=== PATIENT | female | born 1980 | race Asian ===

== ENCOUNTER 2017-04-13 05:10 | Inpatient (IN) | payer OTHER ==
[~2017-04-13] VITALS: Ht 167.6 cm; Wt 63.8 kg
[~2017-04-13 05:10] MED LIST: ABIL1TAB5 PO; ABIL2TAB2 PO; ABIL400I IM; AMBI5TAB PO; BENZ1TA PO; CLON1TAB PO; DESYREL PO; DRIS50002 PO; FLOM5CAP PO; HALO05TA PO; HYDR25T PO; INVE156I IM; KLON1TAB PO; LIDO5TD TD; MAALSUS20 PO; MINI1CAP PO; MIRT15TA3 PO; MOM30SS PO; NICO2GUM62 PO; NICO4GUM31 PO; PANT40TA2 PO; PROZ20CA11 PO; QUET1TAB8 PO; QUET1TAB9 PO; REST15CA PO; RISP1SS IM; RISP4TAB33 PO; RISP4TAB35 PO; SERT-138 PO; SERT25TA PO; SERT50TA PO; TEMA22.5 PO; TEMA30CA PO; TOPA100T8 PO; TOPA50TA7 PO; TOPI1TAB31 PO; TOPI200T4 PO; TOPI25CA PO; TOPI25TA5 PO; TRAZ50TA4 PO; TYLE325T5 PO; ZOLO50TA PO
[2017-04-13] MEDS ORDERED: INVE9TAB PO ×2 (05:29→14:05)
[2017-04-13] MEDS ORDERED: SERT-155 PO (05:29)
[2017-04-13] MEDS ORDERED: TOPA100T8 PO (05:29)
[2017-04-13] MEDS ORDERED: BENZ1TA PO ×2 (05:31→14:05)
[2017-04-13 06:39] LABS: METHADONE URINE NEGATIVE (NEGATIVE)
[2017-04-13 06:42] LABS: MEAN CORPUSCULAR HEMOGLOBIN 30.7 pg (27.0-33.0); MEAN CORPUSCULAR HGB CONC 34.3 g/dl (32.0-36.5); MEAN CORPUSCULAR VOLUME 89.4 fl (80.0-96.0); RED CELL DISTRIBUTION WIDTH 13.4 % (11.5-14.5)
[2017-04-13 06:52] LABS: CONTROL LINE HCG INT CTR LINE PRESENT
[2017-04-13 07:06] LABS: ALBUMIN 4.2 GM/DL (3.2-5.2); ALBUMIN/GLOBULIN RATIO 1.05 (1.00-1.93); ALKALINE PHOSPHATASE 55 U/L (45-117); ALT/SGPT 20 U/L (12-78); ANION GAP 8 MEQ/L (8-16); AST/SGOT 16 U/L (15-37); BILIRUBIN,DIRECT < 0.1 MG/DL (0.0-0.2); BILIRUBIN,TOTAL 0.2 MG/DL (0.2-1.0); BLOOD UREA NITROGEN 5 MG/DL (7-18); CARBON DIOXIDE LEVEL 26 MEQ/L (21-32); CHLORIDE LEVEL 106 MEQ/L (98-107); CREATININE FOR GFR 0.79 MG/DL (0.55-1.02); GLOMERULAR FILTRATION RATE > 60.0 (>60); GLUCOSE, FASTING 90 MG/DL (70-105); POTASSIUM SERUM 4.2 MEQ/L (3.5-5.1); SODIUM LEVEL 140 MEQ/L (136-145); TOTAL PROTEIN 8.2 GM/DL (6.4-8.2)
[2017-04-13] MEDS: NICOTINE 21MG/24HR 1 EA TRANSDERMAL TD SCH ×2 (09:00→18:41)
[2017-04-13 12:27] VITALS: BP 107/57
[2017-04-13] MEDS ORDERED: TOPI1TAB31 PO (14:05)
[2017-04-13] MEDS ORDERED: HYDR25T PO (14:05)
[2017-04-13] MEDS ORDERED: MIRT30TA3 PO (14:05)
[2017-04-13] MEDS ORDERED: INVE3TAB PO (14:05)
[2017-04-13] MEDS ORDERED: DRIS50002 PO (14:05)
[2017-04-13] MEDS ORDERED: SERT50TA PO (14:05)
[2017-04-13] MEDS ORDERED: MOM 30ML SUSPENSION UDC PO PRN (14:15)
[2017-04-13] MEDS ORDERED: MAALOX 30 ML SUSP *UDC PO PRN (14:15)
[2017-04-13] MEDS ORDERED: ACETAMINOPHEN TAB 650MG DOSE (2X325MG) PO PRN (14:15)
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
[2017-04-13] MEDS ORDERED: hydrOXYzine 25 MG TAB PO PRN (14:30)
[2017-04-13] MEDS: BENZTROPINE 1 MG TAB PO SCH ×2 (15:24→21:20)
[2017-04-13 18:00] VITALS: BP 103/59
[2017-04-13] MEDS ORDERED: SERTRALINE HCL 50 MG TAB PO SCH (21:00)
[2017-04-13] MEDS: MIRTAZAPINE 15 MG TAB PO SCH (21:20)
[2017-04-13] MEDS: SERTRALINE HCL 25 MG TABLET PO SCH (21:21)
[2017-04-13] MEDS: PALIPERIDONE 3 MG ER TAB (INVEGA) PO SCH (21:21)
[2017-04-14 06:05] VITALS: BP 91/54
[2017-04-14] MEDS: BENZTROPINE 1 MG TAB PO SCH ×2 (10:00→20:51)
[2017-04-14] MEDS: PALIPERIDONE 3 MG ER TAB (INVEGA) PO SCH ×2 (10:00→20:51)
[2017-04-14] MEDS: NICOTINE 21MG/24HR 1 EA TRANSDERMAL TD SCH (10:00)
[2017-04-14 18:08] VITALS: BP 98/58
[2017-04-14] MEDS: MIRTAZAPINE 15 MG TAB PO SCH (20:50)
[2017-04-14] MEDS: SERTRALINE HCL 25 MG TABLET PO SCH (20:51)
--- NOTE | 2017-04-15 03:05 | IPN ---
DATE OF SERVICE: 04/14/2017 The patient today states "I'm feeling better because I got some sleep." She continues to hear voices though, but she says they are not telling her to kill herself today. MENTAL STATUS EXAMINATION: She is alert and oriented times three. Eye contact is fair. Psychomotor activity is normal. She is verbally spontaneous. There is no formal thought disorder noted. Affect full range and appropriate. She is experiencing command auditory hallucinations to kill herself. She is denying suicidal or homicidal ideations. Concentration is fair. Memory intact. Insight and judgment poor. DIAGNOSIS: Schizoaffective disorder, bipolar type. TREATMENT PLAN: At this point, the patient will continue to be monitored for continued psychotic symptoms and hopefully resolution of these psychotic symptoms and we will titrate medications as indicated.
[2017-04-15 07:20] VITALS: BP 131/76
[2017-04-15] MEDS: BENZTROPINE 1 MG TAB PO SCH ×2 (08:54→20:42)
[2017-04-15] MEDS: PALIPERIDONE 3 MG ER TAB (INVEGA) PO SCH ×2 (08:54→20:42)
[2017-04-15] MEDS: NICOTINE 21MG/24HR 1 EA TRANSDERMAL TD SCH (08:54)
[2017-04-15 18:00] VITALS: BP 105/63
[2017-04-15] MEDS: SERTRALINE HCL 25 MG TABLET PO SCH (20:42)
[2017-04-15] MEDS: MIRTAZAPINE 15 MG TAB PO SCH (20:42)
--- NOTE | 2017-04-16 03:03 | HPE ---
DATE OF ADMISSION: 04/13/2017 HISTORY OF PRESENT ILLNESS: Please refer to psychiatric history and evaluation for further details on this admission. This examination and history is intended for medical issues, which may need treatment, followup or consult on this 36-year-old female. ALLERGIES: SHELLFISH allergy. NONSTEROIDAL ANTIINFLAMMATORY DRUGS (NSAIDS), anaphylaxis; PENICILLIN, rash; NOVOCAIN, lip swelling. SOCIAL HISTORY: She lives with her aunt. She has no children. She does not drink alcohol. She smokes one pack of cigarettes per day. Marijuana she states maybe once in the past year. FAMILY HISTORY: Mother secondary to melanoma in her 60s. LABORATORY STUDIES: WBC 9.0, hemoglobin 15.1, hematocrit 44.0, platelets 465. Electrolytes normal. BUN is 5, creatinine 0.79. TSH 1.71. Toxicology screen was negative. HOME MEDICATIONS: - benztropine methylate 1 mg by mouth twice a day - hydroxyzine 25 mg by mouth three times a day as needed for anxiety - mirtazapine 30 mg by mouth nightly - Invega 3 mg by mouth daily and 9 mg by mouth daily - sertraline 75 mg by mouth daily - Topamax 100 mg by mouth twice a day - vitamin D 50,000 units weekly PAST MEDICAL HISTORY: 1. Posttraumatic stress disorder (PTSD). 2. Schizoaffective disorder. 3. Bipolar disorder. 4. Migraine headaches. 5. Seizure disorder, she follows with Dr. Ervin, neurologist. PAST SURGICAL HISTORY: Two abortions. REVIEW OF SYSTEMS: 10-system review was done, was unremarkable. She had no complaints. OBJECTIVE: Vital signs stable. 36-year-old female in no acute distress. Height 66 inches, weight 60.2 kg, body mass index (BMI) 21.4. Blood pressure 103/59, pulse 70, respirations 16, temperature 99. The patient is alert and oriented times three. Pupils equal and react to light. Extraocular muscles intact. Cornea and sclerae clear. Conjunctivae were normal. No facial asymmetry. Pharynx, tongue and gums pink and moist. Tongue is midline. Neck is supple without lymphadenopathy. No thyromegaly, no goiter. Chest clear to auscultation without wheeze or retraction. Heart is regular. Abdomen is benign. Bowel sounds positive. Genitourinary/rectal: Not done. Extremities show equal strength, full range of motion. No cyanosis, clubbing or edema. Peripheral pulses equal and palpable bilaterally. Skin is warm and dry. Cranial nerves III-XII grossly intact. EKG 07/22/2016 shows sinus rhythm with NSSTW. IMPRESSION/PLAN: 1. Psychiatric plan per psychiatry. EKG on file. 2. Seizure disorder. Continue Topamax as ordered. Continued outpatient followup with Dr. Ervin. 3. Nicotine dependence. Patch available. 4. Gastroesophageal reflux disease (GERD). Continue Protonix. No acute medical issues.
--- NOTE | 2017-04-16 04:51 | IPN ---
DATE OF SERVICE: 04/15/2017 The patient today states "I'm very groggy." She says "the voices are going away." She is not really receptive to answering questions today. MENTAL STATUS EXAMINATION: It was very difficult to evaluate her today. She did deny suicidal ideation. Eye contact poor. Psychomotor activity is decreased. There was no formal thought disorder. Mood is depressed. Affect restricted. She continues to have hallucinations. Insight and judgment poor. DIAGNOSIS: Schizoaffective disorder, bipolar type with psychotic disorder. TREATMENT PLAN: At this point, the patient remains delusional or actually having hallucinations. We will continue to titrate her medications as indicated and to continue to monitor for any resolution of suicidal ideation.
[2017-04-16 06:38] VITALS: BP 90/54
[2017-04-16] MEDS: NICOTINE 21MG/24HR 1 EA TRANSDERMAL TD SCH (09:11)
[2017-04-16] MEDS: BENZTROPINE 1 MG TAB PO SCH ×2 (09:11→18:24)
[2017-04-16] MEDS: PALIPERIDONE 3 MG ER TAB (INVEGA) PO SCH (09:11)
[2017-04-16] MEDS ORDERED: PALIPERIDONE PALMITATE 234 MG/1.5 ML INJ (INVEGA SUSTENNA)(J2426) IM ONE (12:00)
--- NOTE | 2017-04-16 12:22 | MHIPNPDOC ---
[facility] Progress Note Progress Note DATE OF SERVICE: 04/16/17 HISTORY: day 4 of admission. Pt hospitalized due to exacerbation of symptoms- psychosis, SI. VITAL SIGNS: See below. NEW TEST RESULTS: pending labs & EKG CURRENT MEDICATIONS: See below. MENTAL STATUS EXAMINATION: Patient is a 36 -year old female, who is dressed in hospital attire, long dark hair and glasses, slender, good eye contact, cooperative. Speech: Is spontaneous Language skills are grossly intact Thought processes including: goal directed Thought content: bizarre Abstract reasoning, and computation: concrete. Description of associations: loose. Description of abnormal or psychotic thoughts: "It feels like the voices are coming through a speaker". She refers to hearing funny word associations by the voices in her mind. It causes her to smile. Denies SI and HI. Judgment: limited Insight: fair. Orientation: oriented to person, place, time and situation. Recent and remote memory: intact Attention span and concentration: adequate Fund of knowledge: full Mood: depressed. Affect: tired DIAGNOSES: 1. Schizoaffective, bipolar type, current episode depressed with psychotic features. 2. Nicotine dependence 3. polysubstance abuse, in remission. ASSESSMENT:Trever is reporting a.m. drowsiness. She is reporting an improvement in the voices as far as intensity and frequency go. She hears the voices still and laughs at them of what they say to her. Sometimes they give her commands to harm herself. She denies any suicidal intent or plan. She wants to live. She has been hanging out in her room by herself at home. 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 Pt reports intrusive thoughts of PTSD frequently. She is aware that she only seeks out the hospital in the summer. She does admit that father comes to visit this time of year to see his 's grave, (pts mother). Pt is taking medication as ordered. Pt is agreeable to a trial of the Invega sustenna. She would like to eventually try the Invega Trinza. Pt indicates she developed scar tissue on the injections in the past. Important for her to rotate sites. MANAGEMENT PLAN: Order Invega sustenna 234 mg IM. On day 4 pt to receive Invega sustenna 156 mg IM. Pt is to receive 156mg after discharge on 7.6.17. It is doubtful she will need to be the hospital that long so we will need to notify her provider of the injections. PO Invega will be stopped. TIME SPENT: 30 minutes. Vital Signs Vital Signs Date Time Temp Pulse Resp B/P (MAP) Pulse Ox O2 Delivery O2 Flow Rate FiO2 04/16/17 06:38 97.8 57 16 90/54 (66) 04/14/17 06:05 Room Air 04/13/17 12:27 96 Current Medications Current Medications Acetaminophen (Tylenol Tab) 650 mg Q6HP PRN PO HEADACHE or DISCOMFORT; Start at 14:15; Stop 05/13/17 at 14:14 Al Hydrox/Mg Hydrox/Simethicone (Mylanta) 30 ml Q4HP PRN PO HEARTBURN/ INDIGESTION; Start 04/13/17 at 14:15; Stop 05/13/17 at 14:14 Benztropine Mesylate (Cogentin) 1 mg BID PO Last administered on 04/16/17 09:11 ; Start 04/13/17 at 09:00; Stop 05/13/17 at 08:59 Home Med (Med Rec Complete!) ASDIRECTED XX ; Start 04/13/17 at 14:15; Stop at 14:15; Status DC Hydroxyzine HCl (Atarax) 25 mg Q6HP PRN PO ANXIETY; Start 04/13/17 at 14:30; Stop 05/13/17 at 14:29 Magnesium Hydroxide (Milk Of Magnesia) 30 ml DAILYPRN PRN PO CONSTIPATION; Start 04/13/17 at 14:15; Stop 05/13/17 at 14:14 Mirtazapine (Remeron) 15 mg QHS PO Last administered on 04/15/17 20:42; Start 04/13/17 at 21:00; Stop 05/13/17 at 20:59 Nicotine (Nicoderm Cq 21mg) 1 patch DAILY TD Last administered on 04/16/17 09: 11; Start 04/13/17 at 09:00; Stop 05/13/17 at 08:59 Paliperidone (Invega) 3 mg QAM PO Last administered on 04/16/17 09:11; Start at 09:00; Stop 04/16/17 at 11:57; Status DC Paliperidone (Invega) 9 mg QHS PO Last administered on 04/15/17 20:42; Start at 21:00; Stop 05/13/17 at 20:59 Sertraline HCl (Zoloft) 50 mg QHS PO ; Start 04/13/17 at 21:00; Stop 04/13/17 at 21:00; Status DC Sertraline HCl (Zoloft) 75 mg QHS PO Last administered on 04/15/17 20:42; Start 04/13/17 at 21:00; Stop 05/13/17 at 20:59 Allergies Coded Allergies: NSAIDs (Verified Allergy, Severe, 04/13/17) PT REPORTS ANAPHYLACTIC RESPONSE. Naproxen (Verified Allergy, Severe, pt states- anaphylaxis , 04/13/17) Penicillins (Verified Allergy, Severe, 04/13/17) PT REPORTS RASH. Procaine (Verified Allergy, Severe, LIPS SWELL, 04/13/17) Shellfish Allergy (Verified Allergy, Unknown, 04/13/17) Milagros Roman Apr 16, 2017 12:22
[2017-04-16 18:00] VITALS: BP 128/76
[2017-04-16] MEDS: MIRTAZAPINE 15 MG TAB PO SCH (18:24)
[2017-04-16] MEDS: SERTRALINE HCL 25 MG TABLET PO SCH (18:26)
--- NOTE | 2017-04-16 21:56 | ECGEPIP ---
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
[2017-04-17 06:41] VITALS: BP 114/68
[2017-04-17] MEDS: BENZTROPINE 1 MG TAB PO SCH ×3 (08:46→22:46)
[2017-04-17] MEDS: NICOTINE 21MG/24HR 1 EA TRANSDERMAL TD SCH (08:46)
--- NOTE | 2017-04-17 15:39 | MHIPNPDOC ---
[facility] Progress Note Progress Note DATE OF SERVICE: 04/17/17 HISTORY: day 5 of admission for auditory hallucinations and fear of someone outside her home. VITAL SIGNS: See below. NEW TEST RESULTS: na CURRENT MEDICATIONS: See below. MENTAL STATUS EXAMINATION: Patient is a 36-year old female, who is lying in bed, says she does not want to attend groups as she feels too uncomfortable. Speech: Is spontaneous Language skills are intact Thought processes including: linear Thought content: believes at times the TV or radio is synchronized with her thoughts. Abstract reasoning, and computation: fair. Description of associations: good. Description of abnormal or psychotic thoughts: as above. pt denies SI and HI.Pt is not experiencing auditory hallucinations at this time. Judgment: limited Insight: poor. Orientation: oriented in all spheres. Recent and remote memory: intact Attention span and concentration: poor Fund of knowledge: full Mood: depressed. Affect: congruent. DIAGNOSES: 1. Schizoaffective, bipolar type, current episode depressed with psychotic features. 2. Nicotine dependence 3. polysubstance abuse, in remission. ASSESSMENT:Pt is lying in bed all day and should be encouraged to attend programing so we can assess her concentration and attention. She remains in her room all day when at home. Pt is sleeping and says she needs to catch up on sleep but that she had done so over the weekend. Pt is eating and sleeping. Pt is requesting discharge. MANAGEMENT PLAN: Pt needs to show more motivation in order to be discharged. She is scheduled on April 20 for step 2 of Invega Trinza treatment. She will receive Invega Sustenna 156 mg IM on that day. If possible, she can receive injection 3 at [facility] on May 21 of sustenna 156 mg. In June she could start the Trinza injection. We will contact the insurance to see if it will be covered. TIME SPENT: 15 minutes. Vital Signs Vital Signs Date Time Temp Pulse Resp B/P (MAP) Pulse Ox O2 Delivery O2 Flow Rate FiO2 04/17/17 06:41 98.2 72 16 114/68 (83) 04/14/17 06:05 Room Air 04/13/17 12:27 96 Current Medications Current Medications Acetaminophen (Tylenol Tab) 650 mg Q6HP PRN PO HEADACHE or DISCOMFORT Last administered on 04/17/17t 09:19; Start 04/13/17 at 14:15; Stop 05/13/17 at 14:14 Al Hydrox/Mg Hydrox/Simethicone (Mylanta) 30 ml Q4HP PRN PO HEARTBURN/ INDIGESTION; Start 04/13/17 at 14:15; Stop 05/13/17 at 14:14 Benztropine Mesylate (Cogentin) 1 mg BID PO Last administered on 04/17/17 08:46 ; Start 04/13/17 at 09:00; Stop 05/13/17 at 08:59 Home Med (Med Rec Complete!) ASDIRECTED XX ; Start 04/13/17 at 14:15; Stop at 14:15; Status DC Hydroxyzine HCl (Atarax) 25 mg Q6HP PRN PO ANXIETY; Start 04/13/17 at 14:30; Stop 05/13/17 at 14:29 Magnesium Hydroxide (Milk Of Magnesia) 30 ml DAILYPRN PRN PO CONSTIPATION; Start 04/13/17 at 14:15; Stop 05/13/17 at 14:14 Mirtazapine (Remeron) 15 mg QHS PO Last administered on 04/16/17 18:24; Start 04/13/17 at 21:00; Stop 05/13/17 at 20:59 Nicotine (Nicoderm Cq 21mg) 1 patch DAILY TD Last administered on 04/17/17 08: 46; Start 04/13/17 at 09:00; Stop 05/13/17 at 08:59 Paliperidone (Invega) 3 mg QAM PO Last administered on 04/16/17 09:11; Start at 09:00; Stop 04/16/17 at 11:57; Status DC Paliperidone (Invega) 9 mg QHS PO Last administered on 04/15/17 20:42; Start at 21:00; Stop 04/16/17 at 13:06; Status DC Sertraline HCl (Zoloft) 50 mg QHS PO ; Start 04/13/17 at 21:00; Stop 04/13/17 at 21:00; Status DC Sertraline HCl (Zoloft) 75 mg QHS PO Last administered on 04/16/17 18:26; Start 04/13/17 at 21:00; Stop 05/13/17 at 20:59 Allergies Coded Allergies: NSAIDs (Verified Allergy, Severe, 04/13/17) PT REPORTS ANAPHYLACTIC RESPONSE. Naproxen (Verified Allergy, Severe, pt states- anaphylaxis , 04/13/17) Penicillins (Verified Allergy, Severe, 04/13/17) PT REPORTS RASH. Procaine (Verified Allergy, Severe, LIPS SWELL, 04/13/17) Shellfish Allergy (Verified Allergy, Unknown, 04/13/17) Milagros Roman Apr 17, 2017 15:39
[2017-04-17 18:00] VITALS: BP 131/72
[2017-04-17] MEDS: SERTRALINE HCL 25 MG TABLET PO SCH ×2 (21:00→22:46)
[2017-04-17] MEDS: MIRTAZAPINE 15 MG TAB PO SCH ×2 (21:00→22:46)
[2017-04-18 05:59] VITALS: BP 100/55
[2017-04-18] MEDS: BENZTROPINE 1 MG TAB PO SCH ×2 (09:35→21:37)
[2017-04-18] MEDS: NICOTINE 21MG/24HR 1 EA TRANSDERMAL TD SCH (09:36)
--- NOTE | 2017-04-18 11:54 | MHIPNPDOC ---
[facility] Progress Note Progress Note DATE OF SERVICE: 04/18/17 HISTORY: day6 of admission, h/o auditory hallucinations and paranoia VITAL SIGNS: See below. NEW TEST RESULTS: na CURRENT MEDICATIONS: See below. MENTAL STATUS EXAMINATION: Patient is a 36-year old female, who is lying in bed, shows no motivation, pleasant and cooperative. Speech: Is spontaneous Language skills are intact Thought processes including: linear Thought content: paranoid delusions Abstract reasoning, and computation: concrete Description of associations: good. Description of abnormal or psychotic thoughts: feels outside stimuli coordinate with her inner thoughts, denies SI and HI, admits to ongoing auditory hallucinations. Judgment: limited Insight: limited. Orientation: oriented in all spheres. Recent and remote memory: intact Attention span and concentration: adequate Fund of knowledge: full Mood: depressed. Affect: congruent DIAGNOSES: 1. schizoaffective disorder, bipolar type, with psychosis and depression, recurrent, severe. 2. poly substance abuse in remission 3. nicotine dependent. ASSESSMENT:Pt was encouraged to get out of bed and out of the room and to start attending programming so we can assess her attention, concentration and ability to interact appropriately with others. She got up and agreed to do as requested. After attending one group she requested discharge today, stating, "I have been in bed for 3 years". Pt advised that change is slow and this is th [facility] efor her to try doing things differently. Pt asked to envision how she would like he rlife to be 6 months from now. Encouraged to think about the changes she would like ot make in her life. MANAGEMENT PLAN: Continue meds, encourage pt to remain out of room and participation in unit milieu.She is due for a second Invega Sustenna injection on Sunday. We will have a meeting that day with her major case detective and if all goes well she can be discharged that afternoon. TIME SPENT: 15 minutes. Vital Signs Vital Signs Date Time Temp Pulse Resp B/P (MAP) Pulse Ox O2 Delivery O2 Flow Rate FiO2 04/18/17 05:59 98.5 69 20 100/55 (70) 04/14/17 06:05 Room Air 04/13/17 12:27 96 Current Medications Current Medications Acetaminophen (Tylenol Tab) 650 mg Q6HP PRN PO HEADACHE or DISCOMFORT Last administered on 04/17/17t 09:19; Start 04/13/17 at 14:15; Stop 05/13/17 at 14:14 Al Hydrox/Mg Hydrox/Simethicone (Mylanta) 30 ml Q4HP PRN PO HEARTBURN/ INDIGESTION; Start 04/13/17 at 14:15; Stop 05/13/17 at 14:14 Benztropine Mesylate (Cogentin) 1 mg BID PO Last administered on 04/18/17 09:35 ; Start 04/13/17 at 09:00; Stop 05/13/17 at 08:59 Home Med (Med Rec Complete!) ASDIRECTED XX ; Start 04/13/17 at 14:15; Stop at 14:15; Status DC Hydroxyzine HCl (Atarax) 25 mg Q6HP PRN PO ANXIETY; Start 04/13/17 at 14:30; Stop 05/13/17 at 14:29 Magnesium Hydroxide (Milk Of Magnesia) 30 ml DAILYPRN PRN PO CONSTIPATION; Start 04/13/17 at 14:15; Stop 05/13/17 at 14:14 Mirtazapine (Remeron) 15 mg QHS PO Last administered on 04/17/17 22:46; Start 04/13/17 at 21:00; Stop 05/13/17 at 20:59 Nicotine (Nicoderm Cq 21mg) 1 patch DAILY TD Last administered on 04/18/17 09: 36; Start 04/13/17 at 09:00; Stop 05/13/17 at 08:59 Paliperidone (Invega) 3 mg QAM PO Last administered on 04/16/17 09:11; Start at 09:00; Stop 04/16/17 at 11:57; Status DC Paliperidone (Invega) 9 mg QHS PO Last administered on 04/15/17 20:42; Start at 21:00; Stop 04/16/17 at 13:06; Status DC Sertraline HCl (Zoloft) 50 mg QHS PO ; Start 04/13/17 at 21:00; Stop 04/13/17 at 21:00; Status DC Sertraline HCl (Zoloft) 75 mg QHS PO Last administered on 04/17/17 22:46; Start 04/13/17 at 21:00; Stop 05/13/17 at 20:59 Allergies Coded Allergies: NSAIDs (Verified Allergy, Severe, 04/13/17) PT REPORTS ANAPHYLACTIC RESPONSE. Naproxen (Verified Allergy, Severe, pt states- anaphylaxis , 04/13/17) Penicillins (Verified Allergy, Severe, 04/13/17) PT REPORTS RASH. Procaine (Verified Allergy, Severe, LIPS SWELL, 04/13/17) Shellfish Allergy (Verified Allergy, Unknown, 04/13/17) Milagros Roman Apr 18, 2017 11:54
[2017-04-18 18:00] VITALS: BP 107/74
[2017-04-18] MEDS: MIRTAZAPINE 15 MG TAB PO SCH (21:37)
[2017-04-18] MEDS: SERTRALINE HCL 25 MG TABLET PO SCH (21:37)
[2017-04-19 06:28] VITALS: BP 109/72
[2017-04-19 07:51] LABS: BASO # 0.1 K/mm3 (0.0-0.2); BASO % 0.6 % (0.0-1.0); EOS # 0.8 K/mm3 (0.0-0.50); EOS % 8.9 % (0.0-3.0); LARGE UNSTAINED CELL # 0.2 K/mm3 (0.0-0.4); LARGE UNSTAINED CELL % 1.8 % (0.0-4.0); LYMPH # 2.5 K/mm3 (1.5-4.5); LYMPH % 25.4 % (24.0-44.0); MEAN CORPUSCULAR HGB CONC 33.4 g/dl (32.0-36.5); MEAN CORPUSCULAR VOLUME 89.6 fl (80.0-96.0); MONO # 0.5 K/mm3 (0.0-0.8); MONO % 5.4 % (0.0-5.0); NEUTROPHILS # 5.3 K/mm3 (1.8-7.7); NEUTROPHILS % 57.8 % (36.0-66.0); PLATELET COUNT, AUTOMATED 371 k/mm3 (150-450); RED CELL DISTRIBUTION WIDTH 13.1 % (11.5-14.5); WHITE BLOOD COUNT 9.1 K/mm3 (4.0-10.0)
[2017-04-19] MEDS: BENZTROPINE 1 MG TAB PO SCH ×2 (08:26→20:47)
[2017-04-19] MEDS: NICOTINE 21MG/24HR 1 EA TRANSDERMAL TD SCH (08:27)
--- NOTE | 2017-04-19 13:42 | MHIPNPDOC ---
[facility] Progress Note Progress Note DATE OF SERVICE: 04/19/17 HISTORY: day 7 of admission for decompensation, pt off medications and psychotic. VITAL SIGNS: See below. NEW TEST RESULTS: na CURRENT MEDICATIONS: See below. MENTAL STATUS EXAMINATION: Patient is a 36-year old female, who is of descent, lays in bed most of the day and evening, shows little motivation to change her circumstances and makes good eye contact. Speech: Is clear Language skills are intact Thought processes including: linear in brief conversation Thought content: appropriate. Abstract reasoning, and computation: concrete. Description of associations: good. Description of abnormal or psychotic thoughts: pt reports a reduction in Auditory disturbance since resuming Invega, denies SI and HI. Judgment: limited Insight: very limited. Orientation: oriented in all spheres. Recent and remote memory: recall 2/3 after 5 min Attention span and concentration: poor, only lays in bed. States that is what she does all day. Fund of knowledge: impaired Mood: euthymic. Affect: flat, blunted, constricted. DIAGNOSES: 1. Schizoaffective, bipolar type, current episode depressed with psychotic features. 2. Nicotine dependence 3. polysubstance abuse, in remission. ASSESSMENT:pt sitting up in bed, fully clothed, wearing eye glasses. Insisting on discharge tomorrow even though she remains seclusive to room. Once again encouraged pt to be more engaged in the milieu. She says she is too uncomfortable and it is not her way to be sociable. Pt denies psychotic symptoms. Pt denies manic symptoms. Pt wants to leave and return to her Aunt's home. Pt does not offer any input when asked about future plans for education or working. MANAGEMENT PLAN: meeting tomorrow with CM, followed by discharge. Appeal will be presented to her insurance company who is refusing to cover her Invega Sustenna as "she is a new pt to us and has been compliant as far as we can tell ". Some elevation of WBC;s-monophils and eosinophils. VSS. TIME SPENT: 15minutes. Vital Signs Vital Signs Date Time Temp Pulse Resp B/P (MAP) Pulse Ox O2 Delivery O2 Flow Rate FiO2 04/19/17 06:28 97.7 61 16 109/72 (84) 04/14/17 06:05 Room Air 04/13/17 12:27 96 Laboratory Data 24H Labs Laboratory Tests 2 04/19/17 06:54: White Blood Count 9.1, Red Blood Count 4.90, Hemoglobin 14.7, Hematocrit 43.9, Mean Corpuscular Volume 89.6, Mean Corpuscular Hemoglobin 30.0, Mean Corpuscular Hemoglobin Concent 33.4, Red Cell Distribution Width 13.1, Platelet Count 371, Neutrophils (%) (Auto) 57.8, Lymphocytes (%) (Auto) 25.4, Monocytes ( %) (Auto) 5.4H, Eosinophils (%) (Auto) 8.9H, Basophils (%) (Auto) 0.6, Neutrophils # (Auto) 5.3, Lymphocytes # (Auto) 2.5, Monocytes # (Auto) 0.5, Eosinophils # (Auto) 0.8H, Basophils # (Auto) 0.1, Large Unclassified Cells % 1.8, Large Unclassified Cells # 0.2 CBC/BMP Laboratory Tests 04/19/17 06:54 Red Blood Count 4.90, Mean Corpuscular Volume 89.6, Mean Corpuscular Hemoglobin 30.0, Mean Corpuscular Hemoglobin Concent 33.4, Red Cell Distribution Width 13.1 , Neutrophils (%) (Auto) 57.8, Lymphocytes (%) (Auto) 25.4, Monocytes (%) (Auto ) 5.4 H, Eosinophils (%) (Auto) 8.9 H, Basophils (%) (Auto) 0.6, Neutrophils # ( Auto) 5.3, Lymphocytes # (Auto) 2.5, Monocytes # (Auto) 0.5, Eosinophils # (Auto ) 0.8 H, Basophils # (Auto) 0.1 Current Medications Current Medications Acetaminophen (Tylenol Tab) 650 mg Q6HP PRN PO HEADACHE or DISCOMFORT Last administered on 04/17/17 09:19; Start 04/13/17 at 14:15; Stop 05/13/17 at 14:14 Al Hydrox/Mg Hydrox/Simethicone (Mylanta) 30 ml Q4HP PRN PO HEARTBURN/ INDIGESTION; Start 04/13/17 at 14:15; Stop 05/13/17 at 14:14 Benztropine Mesylate (Cogentin) 1 mg BID PO Last administered on 04/19/17 08:26 ; Start 04/13/17 at 09:00; Stop 05/13/17 at 08:59 Home Med (Med Rec Complete!) ASDIRECTED XX ; Start 04/13/17 at 14:15; Stop at 14:15; Status DC Hydroxyzine HCl (Atarax) 25 mg Q6HP PRN PO ANXIETY; Start 04/13/17 at 14:30; Stop 05/13/17 at 14:29 Magnesium Hydroxide (Milk Of Magnesia) 30 ml DAILYPRN PRN PO CONSTIPATION; Start 04/13/17 at 14:15; Stop 05/13/17 at 14:14 Mirtazapine (Remeron) 15 mg QHS PO Last administered on 04/18/17 21:37; Start 04/13/17 at 21:00; Stop 05/13/17 at 20:59 Nicotine (Nicoderm Cq 21mg) 1 patch DAILY TD Last administered on 04/19/17 08: 27; Start 04/13/17 at 09:00; Stop 05/13/17 at 08:59 Paliperidone (Invega) 3 mg QAM PO Last administered on 04/16/17 09:11; Start at 09:00; Stop 04/16/17 at 11:57; Status DC Paliperidone (Invega) 9 mg QHS PO Last administered on 04/15/17 20:42; Start at 21:00; Stop 04/16/17 at 13:06; Status DC Sertraline HCl (Zoloft) 50 mg QHS PO ; Start 04/13/17 at 21:00; Stop 04/13/17 at 21:00; Status DC Sertraline HCl (Zoloft) 75 mg QHS PO Last administered on 04/18/17 21:37; Start 04/13/17 at 21:00; Stop 05/13/17 at 20:59 Allergies Coded Allergies: NSAIDs (Verified Allergy, Severe, 04/13/17) PT REPORTS ANAPHYLACTIC RESPONSE. Naproxen (Verified Allergy, Severe, pt states- anaphylaxis , 04/13/17) Penicillins (Verified Allergy, Severe, 04/13/17) PT REPORTS RASH. Procaine (Verified Allergy, Severe, LIPS SWELL, 04/13/17) Shellfish Allergy (Verified Allergy, Unknown, 04/13/17) Milagros Roman Apr 19, 2017 13:42
[2017-04-19 18:14] VITALS: BP 100/64
[2017-04-19] MEDS: SERTRALINE HCL 25 MG TABLET PO SCH (20:47)
[2017-04-19] MEDS: MIRTAZAPINE 15 MG TAB PO SCH (20:47)
[2017-04-20 07:10] VITALS: BP 98/55
[2017-04-20] MEDS ORDERED: INVE156I IM (08:33)
[2017-04-20] MEDS: BENZTROPINE 1 MG TAB PO SCH (09:17)
[2017-04-20] MEDS: NICOTINE 21MG/24HR 1 EA TRANSDERMAL TD SCH (09:17)
[2017-04-20] MEDS ORDERED: PALIPERIDONE PALMITATE 156 MG/1ML INJ(INVEGA SUSTENNA)(J2426) IM ONE (10:00)
--- NOTE | 2017-04-20 14:41 | MHDSPDOC ---
[facility] Discharge Summary Discharge Summary DATE OF ADMISSION: Apr 13, 2017 at 11:04 DATE OF DISCHARGE: Apr 20, 2017 at 14:05 DISCHARGE DIAGNOSES: 1. schizoaffective disorder, bipolar type 2. Nicotine dependence 3. polysubstance abuse, in remission. REASON FOR ADMISSION:exacerbation of paranoia, hallucinations, non-compliance with outpatient treatment. CONSULTANTS INVOLVED: NA TREATMENT AND PROGRESS ON THE UNIT : Pt is a very bright and intelligent female of [place] descent. She has not well in the oupatient setting gor the past 3 years. She erports spending all day in bed and rarely leaving her home. On the unit she preferred to remain in bed or sitting in bed in her room despite requests to join group activities. She does not find out groups to her liking and often remained in bed. She seems to have very poor or low motivation. Desire to change this is unclear at the time of discharge. She is to continue/ resume Case management services. Her po Invega was changed to IM sustenna. HOSPITAL COURSE:Pt kept to herself and did not interact with any of her peers. She had little interaction with staff. She feels comfortable here and stayed in bed much of the time. We did ask her everday to get up and to to groups. She would but then she would get angry and ask for discharge. Pt started reporting a decrease in auditory disturbance shortly after Invega started and these became less and less to non-existent by the time she was discharged. Mastic Man attempted to engage pt is thinking about how she sees her life in 6 months or a year. Encouraged to make small plans and work on things a little at a time. Pt accepted Invega Sustenna which had been on previously when it was explained she could then transition to the Trinza injection which is only needed 4 x a year. Mastic Man left a message with [facility]'s outpatient provider, Edda Olya, to inform her that Trinza won't be due until June and she will need to order it. Mastic Man has ordered the Sustenna and appeal remains in pending status with insurance company. DISCHARGE ASSESSMENT: Met with pt and Milagros Thompson and NANCY land use planner prior to discharge. All pt concerns and question were answered or addressed. pt as assessed for EPS and akathesia which she denied prior to departure. Pt states she had plans to get her car operational, she wants to get her contacts and pursue her art interest. she may consider [facility] housing in the future since she can have her dogs go with her. Pt agustín tirado throughout admission to ask questions about medications. All questions answered. MENTAL STATUS EXAMINATION ON DISCHARGE: Patient is a 36-year old female, who is wearing glasses, dressed in street clothes, thin and pleasant. Speech is spontaneous Language skills are good Thought processes including: slightly delayed Thought content: appropriate Abstract reasoning, and computation: good Description of associations: good Description of abnormal or psychotic thoughts: paranoid delusions of people outside her house, no SI or HI. Judgment: fair Insight: fair Orientation to person, place, time and situation. Recent and remote memory: appears intact Attention span and concentration: good at times. Fund of knowledge: limited Mood: euthymic Affect: constricted, blunted MEDICATIONS ON DISCHARGE: -Invega sustenna for injection in May, for mood/psychosis -atarax for anxiety mirtazapine for sleep sertraline for depression cogentin for eps PLAN/FOLLOWUP ARRANGEMENTS: [facility] and [facility]. The amount of time spent in the coordination of care for this patient was approximately 30 minutes. Vital Signs/I&Os Vital Signs Date Time Temp Pulse Resp B/P (MAP) Pulse Ox O2 Delivery O2 Flow Rate FiO2 04/20/17 07:10 97.5 63 18 98/55 (69) 04/14/17 06:05 Room Air Medications Scheduled Benztropine Mesylate (Benztropine Mesylate) 1 Mg Tab, 1 MG PO BID for . , ( Reported) Mirtazapine (Mirtazapine) 30 Mg Tab, 30 MG PO QHS for . , (Reported) Paliperidone Palmitate (Invega Sustenna) 156 Mg/Ml Inj, 156 MG IM ONCE for MOOD for 30 Days, #1 Sertraline Hcl (Sertraline HCl) 50 Mg Tab, 75 MG PO DAILY for . , (Reported) Topiramate (Topiramate) 100 Mg Tab, 100 MG PO BID for . , (Reported) Vitamin D (Drisdol) 50,000 Unit Cap, 50,000 UNIT PO QWEEK for SUPPLEMENT, ( Reported) Scheduled PRN Hydroxyzine HCl (Hydroxyzine HCl) 25 Mg Tab, 25 MG PO TID PRN for ANXIETY, ( Reported) Allergies Coded Allergies: NSAIDs (Verified Allergy, Severe, 04/13/17) PT REPORTS ANAPHYLACTIC RESPONSE. Naproxen (Verified Allergy, Severe, pt states- anaphylaxis , 04/13/17) Penicillins (Verified Allergy, Severe, 04/13/17) PT REPORTS RASH. Procaine (Verified Allergy, Severe, LIPS SWELL, 04/13/17) Shellfish Allergy (Verified Allergy, Unknown, 04/13/17) Milagros Roman Apr 20, 2017 14:41
== END 2017-04-20 14:05 | disposition home or self-care (01) | DRG 750 ==
LOC: M ED 07:01 → M ED INP 11:04 → M PSY 12:17
PROVIDERS: ADMIT Psychiatry & Neurology Psychiatry; ATTEND Psychiatry & Neurology Psychiatry
DX: F25.0 Schizoaffective disorder, bipolar type (principal); G40.909 Epilepsy, unspecified, not intractable, without status epilepticus; F19.21 Other psychoactive substance dependence, in remission; Z91.14 Patient's other noncompliance with medication regimen; F17.210 Nicotine dependence, cigarettes, uncomplicated; K21.9 Gastro-esophageal reflux disease without esophagitis; G43.909 Migraine, unspecified, not intractable, without status migrainosus; Z88.0 Allergy status to penicillin; Z88.6 Allergy status to analgesic agent; Z91.013 Allergy to seafood; Z88.8 Allergy status to other drugs, medicaments and biological substances; Z79.899 Other long term (current) drug therapy

== ENCOUNTER 2018-05-18 14:05 | Inpatient (IN) | payer MEDICAID, OTHER ==
[2018-05-18 14:43] LABS: HEMATOCRIT 44.2 % (36.0-47.0); HEMOGLOBIN 14.8 g/dl (12.0-15.5); MEAN CORPUSCULAR HEMOGLOBIN 29.9 pg (27.0-33.0); MEAN CORPUSCULAR HGB CONC 33.5 g/dl (32.0-36.5); MEAN CORPUSCULAR VOLUME 89.3 fl (80.0-96.0); PLATELET COUNT, AUTOMATED 450 10^3/uL (150-450); RED BLOOD COUNT 4.95 10^6/uL (4.00-5.40); RED CELL DISTRIBUTION WIDTH 13.2 % (11.5-14.5); WHITE BLOOD COUNT 9.4 10^3/uL (4.0-10.0)
[2018-05-18 15:14] LABS: ALBUMIN 3.9 GM/DL (3.2-5.2); ALBUMIN/GLOBULIN RATIO 1.03 (1.00-1.93); ALKALINE PHOSPHATASE 55 U/L (45-117); ALT/SGPT 15 U/L (12-78); ANION GAP 7 MEQ/L (8-16); AST/SGOT 10 U/L (7-37); BILIRUBIN,DIRECT 0.1 MG/DL (0.0-0.2); BILIRUBIN,TOTAL 0.4 MG/DL (0.2-1.0); BLOOD UREA NITROGEN 7 MG/DL (7-18); CALCIUM LEVEL 8.9 MG/DL (8.5-10.1); CARBON DIOXIDE LEVEL 27 MEQ/L (21-32); CHLORIDE LEVEL 107 MEQ/L (98-107); ETHYL ALCOHOL (ETHANOL) < 0.003 % (0.000-0.010); GLOMERULAR FILTRATION RATE > 60.0 (>60); GLUCOSE, FASTING 88 MG/DL (70-100); POTASSIUM SERUM 4.8 MEQ/L (3.5-5.1); SALICYLATE LEVEL 3.6 MG/DL (5.0-30.0); SODIUM LEVEL 141 MEQ/L (136-145); THYROID STIMULATING HORMONE 0.413 uIU/ML (0.358-3.740); TOTAL PROTEIN 7.7 GM/DL (6.4-8.2)
[2018-05-18 15:47] LABS: ACETAMINOPHEN LEVEL < 2.0 UG/ML (10.0-30.0)
[2018-05-18] MEDS: risperiDONE 2 MG TAB PO ×3 (16:00→22:20)
[2018-05-18 16:25] LABS: AMPHETAMINES LEVEL URINE NEGATIVE (NEGATIVE); BARBITURATES URINE NEGATIVE (NEGATIVE); BENZODIAZEPINES URINE NEGATIVE (NEGATIVE); CANNABINOIDS URINE NEGATIVE (NEGATIVE); COCAINE METABOLITE URINE NEGATIVE (NEGATIVE); METHADONE URINE NEGATIVE (NEGATIVE); OPIATES URINE NEGATIVE (NEGATIVE); PHENCYCLIDINE URINE NEGATIVE (NEGATIVE)
[2018-05-18] MEDS ORDERED: LORazepam 1 MG TAB PO (17:00)
[2018-05-18] MEDS ORDERED: hydrOXYzine 25 MG TAB PO (17:00)
[2018-05-18] MEDS ORDERED: MAALOX 30 ML SUSP *UDC PO (17:00)
[2018-05-18] MEDS ORDERED: MOM 30ML SUSPENSION UDC PO (17:00)
[2018-05-18] MEDS ORDERED: traZODone 50 MG TAB PO (17:00)
[2018-05-18] MEDS: NICOTINE 21MG/24HR 1 EA TRANSDERMAL TD (19:15)
[2018-05-18] MEDS: AZITHROMYCIN 250 MG TAB PO (22:20)
[2018-05-19] MEDS: NICOTINE 21MG/24HR 1 EA TRANSDERMAL TD (09:00)
[2018-05-19] MEDS: SERTRALINE HCL 50 MG TAB PO (09:13)
[2018-05-19] MEDS: risperiDONE 2 MG TAB PO ×3 (09:13→21:00)
[2018-05-19] MEDS: POLYVINYL ALCOHOL OPHTH SOLN 15 ML(LIQUITEARS) OU (09:15)
[2018-05-19] MEDS: AZITHROMYCIN 250 MG TAB PO (21:00)
[2018-05-20] MEDS: NICOTINE 21MG/24HR 1 EA TRANSDERMAL TD (09:00)
[2018-05-20] MEDS: risperiDONE 2 MG TAB PO ×3 (09:52→22:01)
[2018-05-20] MEDS: SERTRALINE HCL 50 MG TAB PO (09:52)
[2018-05-20] MEDS: AZITHROMYCIN 250 MG TAB PO (22:01)
[2018-05-21] MEDS: NICOTINE 21MG/24HR 1 EA TRANSDERMAL TD (09:00)
[2018-05-21] MEDS: risperiDONE 2 MG TAB PO ×3 (09:30→21:12)
[2018-05-21] MEDS: SERTRALINE HCL 50 MG TAB PO (09:30)
[2018-05-21] MEDS: AZITHROMYCIN 250 MG TAB PO (21:12)
[2018-05-22] MEDS: NICOTINE 21MG/24HR 1 EA TRANSDERMAL TD (09:00)
[2018-05-22] MEDS: SERTRALINE HCL 50 MG TAB PO (09:39)
[2018-05-22] MEDS: risperiDONE 2 MG TAB PO ×2 (09:39→14:32)
[2018-05-22] MEDS: PALIPERIDONE PALMITATE 234 MG/1.5 ML INJ (INVEGA SUSTENNA)(J2426) IM (14:15)
[2018-05-22] MEDS: AZITHROMYCIN 250 MG TAB PO (21:14)
[2018-05-22] MEDS: risperiDONE 3 MG TAB PO (21:14)
[2018-05-23] MEDS: NICOTINE 21MG/24HR 1 EA TRANSDERMAL TD (09:00)
[2018-05-23] MEDS: risperiDONE 3 MG TAB PO ×2 (09:35→21:17)
[2018-05-23] MEDS: SERTRALINE HCL 50 MG TAB PO (09:35)
[2018-05-23] MEDS: risperiDONE 2 MG TAB PO (12:00)
[2018-05-24] MEDS: risperiDONE 3 MG TAB PO ×2 (08:31→21:00)
[2018-05-24] MEDS: SERTRALINE HCL 50 MG TAB PO (08:31)
[2018-05-24] MEDS: NICOTINE 21MG/24HR 1 EA TRANSDERMAL TD (08:32)
[2018-05-24] MEDS: **PENDING PPD ENTRY XX (09:00)
[2018-05-24] MEDS ORDERED: TUBERCULIN PPD 5 UNITS/0.1 ML ID (11:00)
[2018-05-24] MEDS: risperiDONE 2 MG TAB PO (11:16)
[2018-05-24] MEDS: PALIPERIDONE PALMITATE 234 MG/1.5 ML INJ (INVEGA SUSTENNA)(J2426) IM (12:30)
[2018-05-24] MEDS: ACETAMINOPHEN TAB 650MG DOSE (2X325MG) PO (12:46)
[2018-05-25] MEDS: NICOTINE 21MG/24HR 1 EA TRANSDERMAL TD (09:00)
[2018-05-25] MEDS: **PENDING PPD ENTRY XX (09:00)
[2018-05-25] MEDS: risperiDONE 3 MG TAB PO ×2 (09:01→21:22)
[2018-05-25] MEDS: SERTRALINE HCL 50 MG TAB PO (09:01)
[2018-05-25] MEDS: risperiDONE 2 MG TAB PO (12:15)
[2018-05-26] MEDS: NICOTINE 21MG/24HR 1 EA TRANSDERMAL TD (09:00)
[2018-05-26] MEDS: **PENDING PPD ENTRY XX (09:00)
[2018-05-26] MEDS: risperiDONE 3 MG TAB PO ×2 (09:10→21:39)
[2018-05-26] MEDS: SERTRALINE HCL 50 MG TAB PO (09:10)
[2018-05-26] MEDS ORDERED: PPD DOCUMENTATION ENTRY MISC XX (10:00)
[2018-05-26] MEDS: risperiDONE 2 MG TAB PO (12:44)
[2018-05-27] MEDS: **PENDING PPD ENTRY XX (09:00)
[2018-05-27] MEDS: NICOTINE 21MG/24HR 1 EA TRANSDERMAL TD (09:00)
[2018-05-27] MEDS: SERTRALINE HCL 50 MG TAB PO (09:26)
[2018-05-27] MEDS: risperiDONE 3 MG TAB PO (09:26)
[2018-05-27] MEDS: risperiDONE 2 MG TAB PO (21:44)
[2018-05-28] MEDS: risperiDONE 2 MG TAB PO ×2 (09:00→20:38)
[2018-05-28] MEDS: **PENDING PPD ENTRY XX (09:00)
[2018-05-28] MEDS: SERTRALINE HCL 50 MG TAB PO (09:00)
[2018-05-28] MEDS: NICOTINE 21MG/24HR 1 EA TRANSDERMAL TD (09:00)
[2018-05-28] MEDS: ACETAMINOPHEN TAB 650MG DOSE (2X325MG) PO (18:57)
[2018-05-28] MEDS: traZODone 100 MG TAB PO (20:38)
[2018-05-29] MEDS: NICOTINE 21MG/24HR 1 EA TRANSDERMAL TD (08:41)
[2018-05-29] MEDS: risperiDONE 2 MG TAB PO ×2 (08:41→21:52)
[2018-05-29] MEDS: SERTRALINE HCL 50 MG TAB PO (08:41)
[2018-05-29] MEDS: TUBERCULIN PPD 5 UNITS/0.1 ML ID (12:20)
[2018-05-30] MEDS: NICOTINE 21MG/24HR 1 EA TRANSDERMAL TD (09:00)
[2018-05-30] MEDS: risperiDONE 2 MG TAB PO ×2 (09:29→20:53)
[2018-05-30] MEDS: SERTRALINE HCL 50 MG TAB PO (09:29)
[2018-05-31] MEDS: SERTRALINE HCL 50 MG TAB PO (08:58)
[2018-05-31] MEDS: risperiDONE 2 MG TAB PO (08:58)
[2018-05-31] MEDS: NICOTINE 21MG/24HR 1 EA TRANSDERMAL TD (08:59)
[2018-05-31] MEDS: PPD DOCUMENTATION ENTRY MISC XX (08:59)
== END 2018-05-31 09:50 | disposition home or self-care (01) | DRG 885 ==
LOC: M PSY 05-24 20:30 → M ED 14:05 → M ED INP 16:57 → M PSY 18:16
DX: F20.0 Paranoid schizophrenia (principal); G40.909 Epilepsy, unspecified, not intractable, without status epilepticus; J06.9 Acute upper respiratory infection, unspecified; Z91.14 Patient's other noncompliance with medication regimen; Z91.013 Allergy to seafood; Z88.0 Allergy status to penicillin; Z88.8 Allergy status to other drugs, medicaments and biological substances

== ENCOUNTER 2019-10-06 18:17 | Inpatient (IN) | payer MEDICAID ==
[~2019-10-06] VITALS: Ht 167.6 cm; Wt 61.0 kg
[~2019-10-06 18:17] MED LIST changes: +ABIL10TA9 PO; +ABIL1TAB13 PO; -ABIL1TAB5 PO; -ABIL2TAB2 PO; +BENZ-52 PO; +BENZ0.5T23 PO; -BENZ1TA PO; -CLON1TAB PO; +CLON1TAB8 PO; -DRIS50002 PO; +DRIS50003 PO; +FLOM0.4C39 PO; -FLOM5CAP PO; +HALO0.5H PO; -HALO05TA PO; +HYDR-3363 PO; -HYDR25T PO; +INVE234I IM; +INVE3TAB2 PO; +INVE9TAB PO; +MIRT-15 PO; +MIRT30TA3 PO; +NICO2GUM52 PO; -NICO2GUM62 PO; +PALI1TAB2 PO; -PANT40TA2 PO; +PANT40TA3 PO; -QUET1TAB9 PO; +QUET200T2 PO; +RISP2TAB32 PO; +SERT-141 PO; -SERT25TA PO; +SERT25TA85 PO; -SERT50TA PO; +SERT50TA29 PO; +TOPA100T12 PO; -TOPA100T8 PO; -TOPA50TA7 PO; +TOPA50TA8 PO; +TOPI100T9 PO; -TOPI1TAB31 PO; -TOPI200T4 PO; +TOPI200T7 PO; -TOPI25CA PO; +TOPI25CA3 PO; +TOPI25TA10 PO; -TOPI25TA5 PO; +TRAZ-252 PO; +TRAZ10TA PO; -TRAZ50TA4 PO
[2019-10-06 19:26] LABS: HEMATOCRIT 44.7 % (36.0-47.0); HEMOGLOBIN 14.4 g/dl (12.0-15.5); MEAN CORPUSCULAR HGB CONC 32.2 g/dl (32.0-36.5); MEAN CORPUSCULAR VOLUME 90.1 fl (80.0-96.0); PLATELET COUNT, AUTOMATED 520 10^3/uL (150-450); RED BLOOD COUNT 4.96 10^6/uL (4.00-5.40); WHITE BLOOD COUNT 10.2 10^3/uL (4.0-10.0)
[2019-10-06 19:41] LABS: HCG, SERUM QUALITATIVE NEGATIVE (NEGATIVE)
[2019-10-06 19:42] LABS: AMPHETAMINES LEVEL URINE NEGATIVE (NEGATIVE); BARBITURATES URINE NEGATIVE (NEGATIVE); BENZODIAZEPINES URINE NEGATIVE (NEGATIVE); CANNABINOIDS URINE NEGATIVE (NEGATIVE); COCAINE METABOLITE URINE NEGATIVE (NEGATIVE); METHADONE URINE NEGATIVE (NEGATIVE); OPIATES URINE NEGATIVE (NEGATIVE); PHENCYCLIDINE URINE NEGATIVE (NEGATIVE)
[2019-10-06] MEDS ORDERED: VITA200015 PO (19:50)
[2019-10-06] MEDS ORDERED: INVE3TAB2 PO (19:50)
[2019-10-06 19:51] LABS: ACETAMINOPHEN LEVEL < 2.0 UG/ML (10.0-30.0); ALBUMIN 4.1 GM/DL (3.2-5.2); ALT/SGPT 18 U/L (12-78); BILIRUBIN,DIRECT < 0.1 MG/DL (0.0-0.2); BILIRUBIN,TOTAL 0.4 MG/DL (0.2-1.0); BLOOD UREA NITROGEN 10 MG/DL (7-18); CALCIUM LEVEL 9.2 MG/DL (8.5-10.1); CARBON DIOXIDE LEVEL 24 MEQ/L (21-32); CHLORIDE LEVEL 107 MEQ/L (98-107); CREATININE FOR GFR 0.69 MG/DL (0.55-1.30); ETHYL ALCOHOL (ETHANOL) < 0.003 % (0.000-0.010); GLOMERULAR FILTRATION RATE > 60.0 (>60); GLUCOSE, FASTING 100 MG/DL (70-100); SALICYLATE LEVEL < 1.7 MG/DL (5.0-30.0); SODIUM LEVEL 139 MEQ/L (136-145); THYROID STIMULATING HORMONE 0.673 uIU/ML (0.358-3.740); TOTAL PROTEIN 8.2 GM/DL (6.4-8.2)
[2019-10-06] MEDS ORDERED: MOM 30ML SUSPENSION UDC PO PRN (20:45)
[2019-10-06] MEDS ORDERED: MAALOX 30 ML SUSP *UDC PO PRN (20:45)
[2019-10-06] MEDS ORDERED: OLANZapine ORAL DISINTEGRATING TAB 5MG PO PRN (20:45)
[2019-10-06] MEDS ORDERED: ACETAMINOPHEN TAB 650MG DOSE (2X325MG) PO PRN (20:45)
[2019-10-06] MEDS: PALIPERIDONE 3 MG ER TAB (INVEGA) PO SCH (21:00)
[2019-10-07 01:11] VITALS: BP 110/65
[2019-10-07 06:30] VITALS: BP 110/64
[2019-10-07] MEDS ORDERED: diphenhydrAMINE CREAM 30GM TOP PRN (08:15)
[2019-10-07] MEDS ORDERED: GI COCKTAIL 50ML BTL(HYOSCYAMINE/MAALOX/LIDOCAINE VISCOUS)(1:3:1) PO PRN (08:30)
[2019-10-07] MEDS: PALIPERIDONE 3 MG ER TAB (INVEGA) PO SCH ×2 (08:45→20:46)
[2019-10-07] MEDS: OMEPRAZOLE 20 MG CAP PO SCH (08:46)
--- NOTE | 2019-10-07 08:54 | REP ---
Clinical: Fever. Technique: PA and lateral. Findings: Coarsened markings may reflect bronchitis. No focal consolidation. No effusion or pneumothorax. Mediastinum and cardiac silhouette normal. Skeletal structures intact. Impression: Possible bronchitis. No focal consolidation. Electronically Signed by Jesus Lowry MD 10/07/2019 08:46 A
[2019-10-07] MEDS ORDERED: INFLUENZA QUADRIVALENT PF VACCINE 0.5ML SYRINGE (90686) IM ONE (09:00)
[2019-10-07] MEDS: TRIAMCINOLONE ACET 0.1% CREAM 15 GM TOP SCH ×2 (10:44→20:48)
[2019-10-07] MEDS: TRIAMCINOLONE ACET 0.1% OINTMENT 80 GM TOP SCH ×2 (10:45→20:48)
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
[2019-10-07 16:28] VITALS: BP 106/58
--- NOTE | 2019-10-07 21:09 | HPE ---
DATE OF ADMISSION: 10/06/2019 DATE OF SERVICE: 10/07/2019 CHIEF COMPLAINT: Schizoaffective disorder with paranoia. HISTORY OF PRESENT ILLNESS: 38-year-old female with a history of schizophrenia, paranoia, depression, posttraumatic stress disorder (PTSD), migraine headaches, seizure, and history of suicide attempt, admitted to inpatient mental health unit under psychiatrist. The hospitalist was asked to do a medical history and physical. The patient complains of feeling tired and groggy, sleeping most of the day, mostly getting up to go urinate, but it takes her a while to release the urine, which has been going on for some time over the past few weeks. She otherwise denies any dysuria. Complains of some urgency. No frequency. No fever or chills. She has gained about 1 to 2 pounds in the past week. Appetite has been "regular." The patient also complains of a rash underneath the right armpit, as well as the right lower abdomen that is not painful, not vesicular. No history of herpetic rash or shingles in the past. She also notes some epigastric discomfort when she eats that does not radiate, sharp at times, usually resolves within 1 to 2 hours, as well as left upper quadrant. No fever, nausea, vomiting. No radiation. No prior history of alcohol abuse or gallstone disease to suspect pancreatitis. The patient's liver function tests were within normal limits on admission on 10/06/2019. No prior history of peptic ulcer disease. Denies any hematemesis, bright red blood per rectum, melena or black tarry stools. PAST MEDICAL HISTORY: 1. Posttraumatic stress disorder (PTSD). 2. History of suicide attempt. 3. Seizure disorder. 4. Migraine headaches. 5. Bipolar disorder. PAST SURGICAL HISTORY: 1. Two abortions. ALLERGIES: NONSTEROIDAL ANTIINFLAMMATORY DRUGS (NSAIDs), PENICILLIN, NOVOCAIN. NSAIDs causing anaphylaxis, penicillin causing rash, Novocain causing lip swelling. SOCIAL HISTORY: Lives in [place] with her sister, aunt. She is currently single, unemployed. She does not remember what she used to do for work prior to admission. Denies any alcohol use. Previously smoked cigarettes a pack a day for 20 years, quit. Previously smoked marijuana. Currently smokes tea, when she makes tea she dries it out and inhales the smoke. FAMILY HISTORY: Mother with melanoma in her 60s. Father alive and well with unknown medical problems. Sibling alive. Does not know any medical history. REVIEW OF SYSTEMS: As per history of present illness, 12-point system otherwise negative. PHYSICAL EXAMINATION: VITAL SIGNS: Temperature 98, pulse 63, respiratory rate 12, blood pressure 110/64, 100% on room air, maximum temperature (t-max) of 100.3. GENERAL: Awake, alert, oriented times three. Slow to respond but speech is fluent. No use of respiratory accessory muscles. NO cyanosis. No pallor. No icterus. Moist mucous membranes. Neck is supple. No cervical lymphadenopathy, thyromegaly. LUNGS: Clear to auscultation. No wheezing, rales or rhonchi. HEART: S1, S2. Sinus rhythm. ABDOMEN: Soft, nontender, nondistended. Positive bowel sounds. EXTREMITIES: No cyanosis, clubbing or any pitting edema. SKIN: The patient has an erythematous, raised rash on the right lower quadrant of the abdomen, not vesicular. The patient also has an erythematous rash in the right axilla. No lymphadenopathy. LABORATORY DATA: 09/05/2019: White count 10.3, hemoglobin 14, hematocrit 44, platelet count 520. Sodium 139, potassium 4.0, chloride 107, bicarbonate 24, BUN 10, creatinine 0.69, glucose of 100, total bilirubin 0.4, direct bilirubin less than 0.1, AST 11, ALT 18, alkaline phosphatase 65, total protein 8.2, albumin 4.1, TSH 0.673. HCG is negative. ASSESSMENT AND PLAN: This is a 38-year-old female with a history of migraines, seizure disorder, schizoaffective disorder, normal MRI of the brain in March 2015, admitted to inpatient mental health unit due to paranoid schizophrenia. She complains of a rash, epigastric abdominal pain and increased sleepiness and tiredness. ACTIVE ISSUES: 1. Epigastric and left upper quadrant abdominal pain. Liver function tests are within normal limits. No prior history of peptic ulcer disease, gallstones, or alcohol abuse. No complaints of bright red blood per rectum, melena, black tarry stools. No weight loss. Denies dysphagia or odynophagia. Empiric proton pump inhibitor with Prilosec 20 mg daily and GI cocktail as needed. Monitor for recurrent fevers or worsening abdominal pain. We will recheck a CMP with amylase and lipase if the patient has nausea and vomiting, worsening pain and recurrent fever. 2. Urine retention with suprapubic discomfort. Check UA, urine culture and sensitivity, rule out urinary tract infection (UTI). The patient did have a low grade temperature of 100.3. No empiric antibiotics until urinalysis is obtained. The patient is currently on Zyprexa 5 mg every 4 hours as needed. Monitor for recurrent fevers. No lower extremity edema to suspect hypercoagulable state, deep vein thrombosis (DVT) or pulmonary embolism. No complaints of shortness of breath, palpitations, or tachycardia. Check chest x-ray and check respiratory panel. 3. Rash. Topical triamcinolone for 5 days. Topical Benadryl for pruritus. The patient does not complain of any pain. No crustiness or honey-colored lesions noted to suspect herpes or shingles. 4. Schizophrenia with paranoia. Defer to psychiatrist for treatment. 5. Deep vein thrombosis (DVT) prophylaxis. Encourage ambulation. 6. Diet. Regular. MTDD
[2019-10-08 07:03] VITALS: BP 118/66
[2019-10-08] MEDS: OMEPRAZOLE 20 MG CAP PO SCH (08:52)
[2019-10-08] MEDS: PALIPERIDONE 3 MG ER TAB (INVEGA) PO SCH ×2 (08:53→20:28)
[2019-10-08] MEDS: TRIAMCINOLONE ACET 0.1% CREAM 15 GM TOP SCH ×2 (08:54→20:29)
[2019-10-08] MEDS: TRIAMCINOLONE ACET 0.1% OINTMENT 80 GM TOP SCH ×2 (08:55→20:30)
--- NOTE | 2019-10-08 11:18 | MHIPNPDOC ---
[facility] Progress Note Progress Note DATE OF SERVICE: 10/08/19 HISTORY: Patient is a 38 -year-old , female, with a history of paranoid schizophrenia and multiple [facility] admissions in the past who was brought to ED by PD under 9.41 after her aunt called them stating pt was aggressive and has been decompensating recently. Per ED, pt has become increasingly paranoid and delusional at home, denied SI/HI, and stated in the ED that she became angry at her aunt for closing the window in the home. Pt also per ED was very adamant that she was being poisoned by numerous "gases" and "fumes" in the home and therefore opened the windows when her aunt closed them aggressively. In ED pt was insitent that she is being "zapped"by "frequencies in the [place]" that they are "scanning my head." Per ED her speech was rambling and disorganized at times, attention was poor as easily distracted. Pt was unable to answer when she last took her medications or saw her outpatient psychiatrist. Pt denies hallucinations in the ED. She appeared paranoid per ED. Pt seen and states that "the ventilation system was causing exhaust so I went to my room to open the windows... she's always looking for a reaction with weird facial expressions... my dogs" not making much sense and disorganized when see. States she was she wasn't taking invega at home but Tylenol #3 for arthritis. Pt states she feels the same today even with dose of invega 3mg and appears very paranoid of her aunt and "fumes" in her home. She denies SI/HI. Plan to administer invega sustenna for med compliance prior d/c. Pt is a very poor historian. Pt is a very poor historian secondary to psychosis so therefore history gathered from previous hospital records. VITAL SIGNS: See below. NEW TEST RESULTS: See below. CURRENT MEDICATIONS: See below. MENTAL STATUS EXAMINATION:pt seen in room asleep in bed and left sleeping for improvement in psychotic symptoms. Per staff continues to have bizarre, grandiose, and paranoid delusions, is isolative to her room. Pr yesterday's MSE: General Appearance: well groomed, appears stated age, hospital scrubs/clothing Build: thin Demeanor: preoccupied, guarded Eye Contact: fair Activity: anxious Behavior: cooperative, other (guarded) Speech: clear, normal volume, non-spontaneous Mood: euthymic, anxious Mood "fine" Affect: flat, congruent, anxious Thought Process: concrete, tangential, associative, derailment Thought Content (Delusions): grandiose, bizarre, denies SI, HI, AVH, paranoia, delusions Thought Content (Other): preoccupied, guarded, appears paranoid Thought Content (Aggressive): none reported Perception (Hallucinations): none reported Perception (Other): none reported Cognition (Impairment of): attention/concentration, ability to abstract Cognition(Intelligence Est.): average Oriented: Awake, Alert, Oriented times three Insight: poor Judgment: Poor Psychosis: Associations, Abstract Thinking, Psychotic Perceptions DIAGNOSES: Paranoid Schizophrenia ASSESSMENT:Pt took her invega this am and last night. Pt seen in room asleep in bed and left sleeping for improvement in psychotic symptoms. Per staff continues to have bizarre, grandiose, and paranoid delusions, is isolative to her room. MANAGEMENT PLAN: continue plan. Medications: invega 3mg bid TIME SPENT: 30 minutes. Vital Signs Vital Signs Date Time Temp Pulse Resp B/P (MAP) Pulse Ox O2 Delivery O2 Flow Rate FiO2 10/08/19 07:03 99.2 115 16 118/66 (83) 10/07/19 06:30 Room Air 10/07/19 01:11 100 Current Medications Current Medications Medications (Trade) Dose Ordered Sig/Tyrone Route PRN Reason Start Time Stop Time Status Last Admin Dose Admin Acetaminophen (Tylenol Tab) 650 mg Q6HP PRN PO HEADACHE or DISCOMFORT 10/06/19 20:45 Al Hydrox/Mg Hydrox/Simethicone (Mylanta) 30 ml Q4HP PRN PO HEARTBURN/INDIGESTION 10/06/19 20:45 Diphenhydramine HCl (Benadryl Cream) TO ERYTHEMATOUS RASH... QID PRN TOP ITCHING 10/07/19 08:15 10/12/19 08:14 Home Med (Med Rec Complete!) ASDIRECTED XX 10/06/19 20:00 10/06/19 19:54 DC Hyoscyamine/Lido/ Alumin/Mag/Simethi (Gi Cocktail) 50 ml Q6HP PRN PO GI UPSET 10/07/19 08:30 Magnesium Hydroxide (Milk Of Magnesia) 30 ml DAILYPRN PRN PO CONSTIPATION 10/06/19 20:45 Olanzapine (ZyPREXA ZYDIS) 5 mg Q4HP PRN PO AGITATION 10/06/19 20:45 Omeprazole (PriLOSEC) 20 mg DAILY PO 10/07/19 09:00 10/08/19 08:52 Paliperidone (Invega) 3 mg BID PO 10/06/19 21:00 10/08/19 08:53 Triamcinolone Acetonide (Kenalog 0.1% Cream) THIN LAYER TO ERYTHEMAT... BID TOP 10/07/19 09:00 10/11/19 21:01 10/08/19 08:54 Triamcinolone Acetonide (Kenalog 0.1% Ointment) THIN LAYER TO ERYTHEMAT... BID TOP 10/07/19 09:00 10/11/19 21:01 10/08/19 08:55 Allergies Coded Allergies: NSAIDS (Non-Steroidal Anti-Inflamma (Verified Allergy, Unknown, 10/06/19) Penicillins (Verified Allergy, Unknown, 10/06/19) naproxen (Verified Allergy, Unknown, 10/06/19) procaine (Verified Allergy, Unknown, 10/06/19) shellfish derived (Verified Allergy, Unknown, 10/06/19) NUVIA GATES DO Oct 08, 2019 9:17 am
[2019-10-08 16:46] VITALS: BP 117/69
[2019-10-09 05:57] VITALS: BP 122/71
[2019-10-09] MEDS: PALIPERIDONE 3 MG ER TAB (INVEGA) PO SCH ×2 (08:13→20:14)
[2019-10-09] MEDS: OMEPRAZOLE 20 MG CAP PO SCH (08:14)
[2019-10-09] MEDS: TRIAMCINOLONE ACET 0.1% CREAM 15 GM TOP SCH ×2 (08:15→20:14)
[2019-10-09] MEDS: TRIAMCINOLONE ACET 0.1% OINTMENT 80 GM TOP SCH ×2 (08:15→20:14)
--- NOTE | 2019-10-09 10:24 | MHIPNPDOC ---
[facility] Progress Note Progress Note Inpatient Progress Note Francisco Amaya MRN: N/A Date of : N/A Date of Service: 10/09/2019 History of Present Illness 38-year-old woman with a history of psychosis, presents in a psychotic state, being that she is poisoned. She is admitted out of an abundance of caution and has recently started taking her Invega. Interval History The patient is met with today. She reports her memory is slowly returning, but she does not remember much of the process of how she was admitted. She reports she has been taking the Invega without any significant side effects and has been feeling somewhat better. She is still confused as to why she is presented, however she has not been endorsing any significant paranoid ideation and appears to be improving. No major behavioral problems overnight and has otherwise done well. Review Of Systems General: Denies fever or appetite changes Cardiovascular: Denies Chest pain or palpitations GI: Denies Nausea, vomiting, or bowel changes Respiratory: Denies shortness of breath or cough Neuro: Denies dizziness, tremors Derm: Denies any rashes or pruritus : Denies any dysuria or urinary problems MSK: Denies any muscle tightness or stiffness HEENT: Denies any vision changes or headaches Heme/Lymph: denies any bruising or bleeding Endo: denies any cold/heat intolerance or water intake changes Psychotherapy None on this visit. Vital Signs Reviewed. Mental Status Examination General: Well dressed with good hygiene Speech: Spontaneous and fluid Thought processes: Mildly circumstantial MSK: Smooth and coordinated gait, no signs of tremors or involuntary orofacial movements Thought content: Mild confusion Abstract reasoning, and computation: Intact Description of associations: Intact Description of abnormal or psychotic thoughts: Denies any suicidal or homicidal ideation. Denies any auditory or visual hallucinations. Does not appear to be responding to internal stimuli. Does not appear to be endorsing any bizarre or paranoid ideation. Judgment: fair Insight: fair Orientation: Alert and orientated 3 Cognition: Grossly normal Recent and remote memory: Intact Attention span and concentration: Intact Fund of knowledge: Adequate Mood: "okay" Affect: Mildly flat Diagnoses Schizophrenia. Assessment and Plan Schizophrenia: Continue Invega 3 mg BID. Disposition The patient will need a further inpatient admission in order to treat the patient's resolving psychosis. Time Spent 15 minutes [id number]. Vital Signs Vital Signs Date Time Temp Pulse Resp B/P (MAP) Pulse Ox O2 Delivery O2 Flow Rate FiO2 10/09/19 05:57 98.9 90 16 122/71 (88) 10/08/19 16:46 98 Room Air Current Medications Current Medications Medications (Trade) Dose Ordered Sig/Tyrone Route PRN Reason Start Time Stop Time Status Last Admin Dose Admin Acetaminophen (Tylenol Tab) 650 mg Q6HP PRN PO HEADACHE or DISCOMFORT 10/06/19 20:45 Al Hydrox/Mg Hydrox/Simethicone (Mylanta) 30 ml Q4HP PRN PO HEARTBURN/INDIGESTION 10/06/19 20:45 Diphenhydramine HCl (Benadryl Cream) TO ERYTHEMATOUS RASH... QID PRN TOP ITCHING 10/07/19 08:15 10/12/19 08:14 Home Med (Med Rec Complete!) ASDIRECTED XX 10/06/19 20:00 10/06/19 19:54 DC Hyoscyamine/Lido/ Alumin/Mag/Simethi (Gi Cocktail) 50 ml Q6HP PRN PO GI UPSET 10/07/19 08:30 Magnesium Hydroxide (Milk Of Magnesia) 30 ml DAILYPRN PRN PO CONSTIPATION 10/06/19 20:45 Olanzapine (ZyPREXA ZYDIS) 5 mg Q4HP PRN PO AGITATION 10/06/19 20:45 Omeprazole (PriLOSEC) 20 mg DAILY PO 10/07/19 09:00 10/09/19 08:14 Paliperidone (Invega) 3 mg BID PO 10/06/19 21:00 10/09/19 08:13 Triamcinolone Acetonide (Kenalog 0.1% Cream) THIN LAYER TO ERYTHEMAT... BID TOP 10/07/19 09:00 10/11/19 21:01 10/09/19 08:15 Triamcinolone Acetonide (Kenalog 0.1% Ointment) THIN LAYER TO ERYTHEMAT... BID TOP 10/07/19 09:00 10/11/19 21:01 10/09/19 08:15 Allergies Coded Allergies: NSAIDS (Non-Steroidal Anti-Inflamma (Verified Allergy, Unknown, 10/06/19) Penicillins (Verified Allergy, Unknown, 10/06/19) naproxen (Verified Allergy, Unknown, 10/06/19) procaine (Verified Allergy, Unknown, 10/06/19) shellfish derived (Verified Allergy, Unknown, 10/06/19) LAISHA MALDONADO DO Oct 09, 2019 10:24
[2019-10-10 06:28] VITALS: BP 115/62
--- NOTE | 2019-10-10 09:11 | MHIPNPDOC ---
[facility] Progress Note Progress Note DATE OF SERVICE: 10/10/19 HISTORY: Patient is a 38 -year-old , female, with a history of paranoid schizophrenia and multiple [facility] admissions in the past who was brought to ED by PD under 9.41 after her aunt called them stating pt was aggressive and has been decompensating recently. Per ED, pt has become increasingly paranoid and delusional at home, denied SI/HI, and stated in the ED that she became angry at her aunt for closing the window in the home. Pt also per ED was very adamant that she was being poisoned by numerous "gases" and "fumes" in the home and therefore opened the windows when her aunt closed them aggressively. In ED pt was insitent that she is being "zapped"by "frequencies in the [place]" that they are "scanning my head." Per ED her speech was rambling and disorganized at times, attention was poor as easily distracted. Pt was unable to answer when she last took her medications or saw her outpatient psychiatrist. Pt denies hallucinations in the ED. She appeared paranoid per ED. Pt seen and states that "the ventilation system was causing exhaust so I went to my room to open the windows... she's always looking for a reaction with weird facial expressions... my dogs" not making much sense and disorganized when see. States she was she wasn't taking invega at home but Tylenol #3 for arthritis. Pt states she feels the same today even with dose of invega 3mg and appears very paranoid of her aunt and "fumes" in her home. She denies SI/HI. Plan to administer invega sustenna for med compliance prior d/c. Pt is a very poor historian. Pt is a very poor historian secondary to psychosis so therefore history gathered from previous hospital records. VITAL SIGNS: See below. NEW TEST RESULTS: See below. CURRENT MEDICATIONS: See below. MENTAL STATUS EXAMINATION:pt seen in room asleep in bed and left sleeping for improvement in psychotic symptoms. Per staff continues to have bizarre, grandiose, and paranoid delusions, is isolative to her room. Pr yesterday's MSE: General Appearance: well groomed, appears stated age, hospital scrubs/clothing Build: thin Demeanor: preoccupied, guarded Eye Contact: fair Activity: anxious Behavior: cooperative, other (guarded) Speech: clear, normal volume, non-spontaneous Mood: euthymic, anxious Mood "I'm sleeping" Affect: flat, congruent, anxious Thought Process: concrete, tangential, associative, derailment Thought Content (Delusions): grandiose, bizarre, denies SI, HI, AVH, paranoia, delusions Thought Content (Other): preoccupied, guarded, appears paranoid Thought Content (Aggressive): none reported Perception (Hallucinations): none reported Perception (Other): none reported Cognition (Impairment of): attention/concentration, ability to abstract Cognition(Intelligence Est.): average Oriented: Awake, Alert, Oriented times three Insight: poor Judgment: Poor Psychosis: Associations, Abstract Thinking, Psychotic Perceptions DIAGNOSES: Paranoid Schizophrenia ASSESSMENT:Pt took her invega this am and last night. Pt seen in room asleep in bed and said when I asked to see her "I'm sleeping" and didn't get up to see me so I left so pt could continue sleeping for improvement in psychotic symptoms. Per staff continues to have bizarre, grandiose, and paranoid delusions, is isolative to her room. MANAGEMENT PLAN: continue plan. Medications: invega 3mg bid TIME SPENT: 30 minutes. Vital Signs Vital Signs Date Time Temp Pulse Resp B/P (MAP) Pulse Ox O2 Delivery O2 Flow Rate FiO2 10/10/19 06:28 98.0 98 16 115/62 (79) Room Air 10/08/19 16:46 98 Current Medications Current Medications Medications (Trade) Dose Ordered Sig/Tyrone Route PRN Reason Start Time Stop Time Status Last Admin Dose Admin Acetaminophen (Tylenol Tab) 650 mg Q6HP PRN PO HEADACHE or DISCOMFORT 10/06/19 20:45 10/09/19 20:13 Al Hydrox/Mg Hydrox/Simethicone (Mylanta) 30 ml Q4HP PRN PO HEARTBURN/INDIGESTION 10/06/19 20:45 Diphenhydramine HCl (Benadryl Cream) TO ERYTHEMATOUS RASH... QID PRN TOP ITCHING 10/07/19 08:15 10/12/19 08:14 Home Med (Med Rec Complete!) ASDIRECTED XX 10/06/19 20:00 10/06/19 19:54 DC Hyoscyamine/Lido/ Alumin/Mag/Simethi (Gi Cocktail) 50 ml Q6HP PRN PO GI UPSET 10/07/19 08:30 Magnesium Hydroxide (Milk Of Magnesia) 30 ml DAILYPRN PRN PO CONSTIPATION 10/06/19 20:45 Olanzapine (ZyPREXA ZYDIS) 5 mg Q4HP PRN PO AGITATION 10/06/19 20:45 Omeprazole (PriLOSEC) 20 mg DAILY PO 10/07/19 09:00 10/09/19 08:14 Paliperidone (Invega) 3 mg BID PO 10/06/19 21:00 10/09/19 20:14 Triamcinolone Acetonide (Kenalog 0.1% Cream) THIN LAYER TO ERYTHEMAT... BID TOP 10/07/19 09:00 10/11/19 21:01 10/09/19 20:14 Triamcinolone Acetonide (Kenalog 0.1% Ointment) THIN LAYER TO ERYTHEMAT... BID TOP 10/07/19 09:00 10/11/19 21:01 10/09/19 20:14 Allergies Coded Allergies: NSAIDS (Non-Steroidal Anti-Inflamma (Verified Allergy, Unknown, 10/06/19) Penicillins (Verified Allergy, Unknown, 10/06/19) naproxen (Verified Allergy, Unknown, 10/06/19) procaine (Verified Allergy, Unknown, 10/06/19) shellfish derived (Verified Allergy, Unknown, 10/06/19) NUVIA GATES DO Oct 10, 2019 9:11 am
[2019-10-10] MEDS: TRIAMCINOLONE ACET 0.1% CREAM 15 GM TOP SCH ×2 (09:34→21:05)
[2019-10-10] MEDS: OMEPRAZOLE 20 MG CAP PO SCH (09:35)
[2019-10-10] MEDS: PALIPERIDONE 3 MG ER TAB (INVEGA) PO SCH ×2 (09:35→21:05)
[2019-10-10] MEDS: TRIAMCINOLONE ACET 0.1% OINTMENT 80 GM TOP SCH ×2 (09:35→21:05)
[2019-10-10 16:44] VITALS: BP 104/66
[2019-10-11 05:41] VITALS: BP 120/73
[2019-10-11] MEDS: PALIPERIDONE 3 MG ER TAB (INVEGA) PO SCH ×2 (08:57→20:47)
[2019-10-11] MEDS: OMEPRAZOLE 20 MG CAP PO SCH (08:58)
[2019-10-11] MEDS: TRIAMCINOLONE ACET 0.1% CREAM 15 GM TOP SCH ×2 (08:59→20:46)
[2019-10-11] MEDS: TRIAMCINOLONE ACET 0.1% OINTMENT 80 GM TOP SCH ×2 (09:00→20:46)
--- NOTE | 2019-10-11 11:34 | MHIPNPDOC ---
[facility] Progress Note Progress Note Inpatient Progress Note Francisco Amaya MRN: N/A Date of : N/A Date of Service: 10/11/2019 History of Present Illness 38-year-old woman with a history of psychosis, presents in a psychotic state, being that she is poisoned. She is admitted out of an abundance of caution and has recently started taking her Invega. Interval History The patient is met with today. She reports she is oversedated by her Invega today as she is on a 3 mg BID regimen. She generally has been doing well, getting up and walking around, she does note some sedation and confusion at times during the daytime and takes frequent naps. Her bizarreness seems to be resolving and she no longer feels that her food is poisoned and has been much more amenable to staff interventions. She has had no major behavioral problems overnight and appears to be making progress per staff report. Review Of Systems General: Denies fever or appetite changes Cardiovascular: Denies Chest pain or palpitations GI: Denies Nausea, vomiting, or bowel changes Respiratory: Denies shortness of breath or cough Neuro: Denies dizziness, tremors Derm: Denies any rashes or pruritus : Denies any dysuria or urinary problems MSK: Denies any muscle tightness or stiffness HEENT: Denies any vision changes or headaches Heme/Lymph: denies any bruising or bleeding Endo: denies any cold/heat intolerance or water intake changes Psychotherapy None on this visit. Vital Signs Reviewed. Mental Status Examination General: Well dressed with good hygiene Speech: Spontaneous and fluid Thought processes: Linear MSK: Smooth and coordinated gait, no signs of tremors or involuntary orofacial movements Thought content: More clarity Abstract reasoning, and computation: Intact Description of associations: Intact Description of abnormal or psychotic thoughts: Denies any suicidal or homicidal ideation. Denies any auditory or visual hallucinations. Does not appear to be responding to internal stimuli. Does not appear to be endorsing any bizarre or paranoid ideation. Judgment: fair Insight: fair Orientation: Alert and orientated 3 Cognition: Grossly normal Recent and remote memory: Intact Attention span and concentration: Intact Fund of knowledge: Adequate Mood: "okay" Affect: Mildly flat Diagnoses Schizophrenia. Assessment and Plan Schizophrenia: Change Invega to 6 mg QHS in order to reduce sedation. Discussed with patient potential sleep treatment such as Rozerem, but patient declined. Disposition The patient will need a further inpatient admission in order to treat the patient's resolving psychosis. Time Spent 15 minutes [id number]. Sunday Vital Signs Vital Signs Date Time Temp Pulse Resp B/P (MAP) Pulse Ox O2 Delivery O2 Flow Rate FiO2 10/11/19 05:41 98.7 73 14 120/73 (89) 10/10/19 06:28 Room Air 10/08/19 16:46 98 Current Medications Current Medications Medications (Trade) Dose Ordered Sig/Tyrone Route PRN Reason Start Time Stop Time Status Last Admin Dose Admin Acetaminophen (Tylenol Tab) 650 mg Q6HP PRN PO HEADACHE or DISCOMFORT 10/06/19 20:45 10/09/19 20:13 Al Hydrox/Mg Hydrox/Simethicone (Mylanta) 30 ml Q4HP PRN PO HEARTBURN/INDIGESTION 10/06/19 20:45 Diphenhydramine HCl (Benadryl Cream) TO ERYTHEMATOUS RASH... QID PRN TOP ITCHING 10/07/19 08:15 10/12/19 08:14 Home Med (Med Rec Complete!) ASDIRECTED XX 10/06/19 20:00 10/06/19 19:54 DC Hyoscyamine/Lido/ Alumin/Mag/Simethi (Gi Cocktail) 50 ml Q6HP PRN PO GI UPSET 10/07/19 08:30 Magnesium Hydroxide (Milk Of Magnesia) 30 ml DAILYPRN PRN PO CONSTIPATION 10/06/19 20:45 Olanzapine (ZyPREXA ZYDIS) 5 mg Q4HP PRN PO AGITATION 10/06/19 20:45 Omeprazole (PriLOSEC) 20 mg DAILY PO 10/07/19 09:00 10/11/19 08:58 Paliperidone (Invega) 3 mg BID PO 10/06/19 21:00 10/11/19 08:57 Triamcinolone Acetonide (Kenalog 0.1% Cream) THIN LAYER TO ERYTHEMAT... BID TOP 10/07/19 09:00 10/11/19 21:01 10/11/19 08:59 Triamcinolone Acetonide (Kenalog 0.1% Ointment) THIN LAYER TO ERYTHEMAT... BID TOP 10/07/19 09:00 10/11/19 21:01 10/11/19 09:00 Allergies Coded Allergies: NSAIDS (Non-Steroidal Anti-Inflamma (Verified Allergy, Unknown, 10/06/19) Penicillins (Verified Allergy, Unknown, 10/06/19) naproxen (Verified Allergy, Unknown, 10/06/19) procaine (Verified Allergy, Unknown, 10/06/19) shellfish derived (Verified Allergy, Unknown, 10/06/19) LAISHA MALDONADO DO Oct 11, 2019 11:34
[2019-10-11 16:22] VITALS: BP 106/60
[2019-10-12 06:07] VITALS: BP 114/61
[2019-10-12] MEDS: OMEPRAZOLE 20 MG CAP PO SCH (09:06)
[2019-10-12 15:42] VITALS: BP 99/55
[2019-10-12] MEDS: PALIPERIDONE 3 MG ER TAB (INVEGA) PO SCH (21:57)
[2019-10-13 06:30] VITALS: BP 118/68
[2019-10-13] MEDS: OMEPRAZOLE 20 MG CAP PO SCH (08:54)
--- NOTE | 2019-10-13 09:43 | MHIPNPDOC ---
[facility] Progress Note Progress Note DATE OF SERVICE: 10/13/19 HISTORY: Patient is a 38 -year-old , female, with a history of paranoid schizophrenia and multiple [facility] admissions in the past who was brought to ED by PD under 9.41 after her aunt called them stating pt was aggressive and has been decompensating recently. Per ED, pt has become increasingly paranoid and delusional at home, denied SI/HI, and stated in the ED that she became angry at her aunt for closing the window in the home. Pt also per ED was very adamant that she was being poisoned by numerous "gases" and "fumes" in the home and therefore opened the windows when her aunt closed them aggressively. In ED pt was insitent that she is being "zapped"by "frequencies in the [place]" that they are "scanning my head." Per ED her speech was rambling and disorganized at times, attention was poor as easily distracted. Pt was unable to answer when she last took her medications or saw her outpatient psychiatrist. Pt denies hallucinations in the ED. She appeared paranoid per ED. Pt seen and states that "the ventilation system was causing exhaust so I went to my room to open the windows... she's always looking for a reaction with weird facial expressions... my dogs" not making much sense and disorganized when see. States she was she wasn't taking invega at home but Tylenol #3 for arthritis. Pt states she feels the same today even with dose of invega 3mg and appears very paranoid of her aunt and "fumes" in her home. She denies SI/HI. Plan to administer invega sustenna for med compliance prior d/c. Pt is a very poor historian. Pt is a very poor historian secondary to psychosis so therefore history gathered from previous hospital records. VITAL SIGNS: See below. NEW TEST RESULTS: See below. CURRENT MEDICATIONS: See below. MENTAL STATUS EXAMINATION: General Appearance: well groomed, appears stated age, hospital scrubs/clothing Build: thin Demeanor: preoccupied, guarded, angry Eye Contact: fair Activity: anxious, angry Behavior: uncooperative, confrontation, (guarded) Speech: clear, normal volume, spontaneous, rambling Mood: angry and reactive, anxious Mood "I'm fine... I like the pills" Affect: angry and reactive, congruent, anxious Thought Process: concrete, tangential, associative, derailment, paranoid Thought Content (Delusions): grandiose, bizarre, denies SI, HI, AVH, paranoia, delusions Thought Content (Other): preoccupied, guarded, appears paranoid (especially of me, the unit, and invega sustenna) Thought Content (Aggressive): none reported Perception (Hallucinations): none reported Perception (Other): none reported Cognition (Impairment of): attention/concentration, ability to abstract Cognition(Intelligence Est.): average Oriented: Awake, Alert, Oriented times three Insight: poor Judgment: Poor Psychosis: Associations, Abstract Thinking, Psychotic Perceptions DIAGNOSES: Paranoid Schizophrenia ASSESSMENT:Pt seen during treatment team and at first cooperative and pleasant then after recommended she take invega sustenna became very confrontational stating that it's never worked well for her, likes the pills more, and when she had her last invega sustenna she went it to "shock" yet unable to exactly tell me what symptoms she had other than stating she doesn't want to take it. Then started tangentially rambling in angry tone about me prescribing medicine to her, talking about my private practice (I don't have one and I'm seeing her inpatient), wants my card and gave her my full name b/c I don't have a card for her, and thinking I have something against her, very paranoid regarding myself, which is why I want her to take invega sustenna. Stated she'd take the invega sustenna at the end mostly out of being angry and spiteful that I'm recommending it to her. Told pt that I'm just trying to help her. I'm recommended invega sustenna as pt has a long history of being noncompliant on her oral medications which results in relapse of schizophrenic symptoms. Per hospital records when pt last d/c from [facility] 05/31/18 after admission for psychosis secondary med noncompliance she had been given invega sustenna prior d/c that she tolerated very well and was beneficial for her symptoms of psychosis and paranoia. Pt did take her invega this am and last night. Per staff continues to have bizarre, grandiose, and paranoid delusions, is isolative to her room. MANAGEMENT PLAN: continue plan. Invega sustenna 234mg im x1 today Medications: invega 6mg qhs TIME SPENT: 30 minutes. Vital Signs Vital Signs Date Time Temp Pulse Resp B/P (MAP) Pulse Ox O2 Delivery O2 Flow Rate FiO2 10/13/19 06:30 99.0 90 16 118/68 (85) Room Air 10/08/19 16:46 98 Current Medications Current Medications Medications (Trade) Dose Ordered Sig/Tyrone Route PRN Reason Start Time Stop Time Status Last Admin Dose Admin Acetaminophen (Tylenol Tab) 650 mg Q6HP PRN PO HEADACHE or DISCOMFORT 10/06/19 20:45 10/09/19 20:13 Al Hydrox/Mg Hydrox/Simethicone (Mylanta) 30 ml Q4HP PRN PO HEARTBURN/INDIGESTION 10/06/19 20:45 Diphenhydramine HCl (Benadryl Cream) TO ERYTHEMATOUS RASH... QID PRN TOP ITCHING 10/07/19 08:15 10/12/19 08:14 DC Home Med (Med Rec Complete!) ASDIRECTED XX 10/06/19 20:00 10/06/19 19:54 DC Hyoscyamine/Lido/ Alumin/Mag/Simethi (Gi Cocktail) 50 ml Q6HP PRN PO GI UPSET 10/07/19 08:30 Magnesium Hydroxide (Milk Of Magnesia) 30 ml DAILYPRN PRN PO CONSTIPATION 10/06/19 20:45 Olanzapine (ZyPREXA ZYDIS) 5 mg Q4HP PRN PO AGITATION 10/06/19 20:45 Omeprazole (PriLOSEC) 20 mg DAILY PO 10/07/19 09:00 10/13/19 08:54 Paliperidone (Invega) 3 mg BID PO 10/06/19 21:00 10/11/19 16:55 DC 10/11/19 08:57 Paliperidone (Invega) 6 mg QHS PO 10/11/19 21:00 10/12/19 21:57 Triamcinolone Acetonide (Kenalog 0.1% Cream) THIN LAYER TO ERYTHEMAT... BID TOP 10/07/19 09:00 10/11/19 21:01 DC 10/11/19 20:46 Triamcinolone Acetonide (Kenalog 0.1% Ointment) THIN LAYER TO ERYTHEMAT... BID TOP 10/07/19 09:00 10/11/19 21:01 DC 10/11/19 20:46 Allergies Coded Allergies: NSAIDS (Non-Steroidal Anti-Inflamma (Verified Allergy, Unknown, 10/06/19) Penicillins (Verified Allergy, Unknown, 10/06/19) naproxen (Verified Allergy, Unknown, 10/06/19) procaine (Verified Allergy, Unknown, 10/06/19) shellfish derived (Verified Allergy, Unknown, 10/06/19) NUVIA GATES DO Oct 13, 2019 9:43 am
[2019-10-13] MEDS ORDERED: PALIPERIDONE PALMITATE 234MG/1.5ML INJ (INVEGA)(J2426)(FREE PSY INPT ONLY) IM ONE (12:00)
[2019-10-13 17:46] VITALS: BP 111/67
[2019-10-13] MEDS: PALIPERIDONE 3 MG ER TAB (INVEGA) PO SCH (21:38)
[2019-10-14 06:45] VITALS: BP 125/66
[2019-10-14] MEDS: OMEPRAZOLE 20 MG CAP PO SCH (09:00)
--- NOTE | 2019-10-14 09:00 | MHIPNPDOC ---
[facility] Progress Note Progress Note DATE OF SERVICE: 10/14/19 HISTORY: Patient is a 38 -year-old , female, with a history of paranoid schizophrenia and multiple [facility] admissions in the past who was brought to ED by PD under 9.41 after her aunt called them stating pt was aggressive and has been decompensating recently. Per ED, pt has become increasingly paranoid and delusional at home, denied SI/HI, and stated in the ED that she became angry at her aunt for closing the window in the home. Pt also per ED was very adamant that she was being poisoned by numerous "gases" and "fumes" in the home and therefore opened the windows when her aunt closed them aggressively. In ED pt was insitent that she is being "zapped"by "frequencies in the [place]" that they are "scanning my head." Per ED her speech was rambling and disorganized at times, attention was poor as easily distracted. Pt was unable to answer when she last took her medications or saw her outpatient psychiatrist. Pt denies hallucinations in the ED. She appeared paranoid per ED. Pt seen and states that "the ventilation system was causing exhaust so I went to my room to open the windows... she's always looking for a reaction with weird facial expressions... my dogs" not making much sense and disorganized when see. States she was she wasn't taking invega at home but Tylenol #3 for arthritis. Pt states she feels the same today even with dose of invega 3mg and appears very paranoid of her aunt and "fumes" in her home. She denies SI/HI. Plan to administer invega sustenna for med compliance prior d/c. Pt is a very poor historian. Pt is a very poor historian secondary to psychosis so therefore history gathered from previous hospital records. VITAL SIGNS: See below. NEW TEST RESULTS: See below. CURRENT MEDICATIONS: See below. MENTAL STATUS EXAMINATION: General Appearance: well groomed, appears stated age, hospital scrubs/clothing Build: thin Demeanor: preoccupied, cooperative Eye Contact: fair Activity: resting in bed Behavior: cooperative Speech: clear, normal volume, spontaneous, rambling Mood: resting in bed Mood "ok" Affect: resting in bed, euthymic but reactive at times Thought Process: concrete, tangential, associative, derailment, paranoid Thought Content (Delusions): grandiose, bizarre, denies SI, HI, AVH, paranoia, delusions Thought Content (Other): preoccupied, guarded, appears paranoid (especially of me, the unit, and invega sustenna) Thought Content (Aggressive): none reported Perception (Hallucinations): none reported Perception (Other): none reported Cognition (Impairment of): attention/concentration, ability to abstract Cognition(Intelligence Est.): average Oriented: Awake, Alert, Oriented times three Insight: poor Judgment: Poor Psychosis: Associations, Abstract Thinking, Psychotic Perceptions DIAGNOSES: Paranoid Schizophrenia ASSESSMENT:Pt seen in room sleeping, a easily woken when I spoke to her. States she's doing ok. Pt did take her invega sustenna yesterday and so far stated she's tolerating it well with no side effects. Will d/c her oral invega and plan for maintenance dose of invega sustenna 156mg im in 2 days. Will monitor pt progress with invega sustenna for continued improvement in psychosis. Per hospital records when pt last d/c from [facility] 05/31/18 after admission for psychosis secondary med noncompliance she had been given invega sustenna prior d/c that she tolerated very well and was beneficial for her symptoms of psychosis and paranoia. Per staff continues to have bizarre, grandiose, and paranoid delusions, is isolative to her room. MANAGEMENT PLAN: continue plan. Invega sustenna 156mg im x1 , d/c oral invega Medications: Invega sustenna 234mg im 10/13/19 TIME SPENT: 30 minutes. Vital Signs Vital Signs Date Time Temp Pulse Resp B/P (MAP) Pulse Ox O2 Delivery O2 Flow Rate FiO2 10/14/19 06:45 99.1 63 18 125/66 (85) 10/13/19 06:30 Room Air 10/08/19 16:46 98 Current Medications Current Medications Medications (Trade) Dose Ordered Sig/Tyrone Route PRN Reason Start Time Stop Time Status Last Admin Dose Admin Acetaminophen (Tylenol Tab) 650 mg Q6HP PRN PO HEADACHE or DISCOMFORT 10/06/19 20:45 10/09/19 20:13 Al Hydrox/Mg Hydrox/Simethicone (Mylanta) 30 ml Q4HP PRN PO HEARTBURN/INDIGESTION 10/06/19 20:45 Diphenhydramine HCl (Benadryl Cream) TO ERYTHEMATOUS RASH... QID PRN TOP ITCHING 10/07/19 08:15 10/12/19 08:14 DC Home Med (Med Rec Complete!) ASDIRECTED XX 10/06/19 20:00 10/06/19 19:54 DC Hyoscyamine/Lido/ Alumin/Mag/Simethi (Gi Cocktail) 50 ml Q6HP PRN PO GI UPSET 10/07/19 08:30 Magnesium Hydroxide (Milk Of Magnesia) 30 ml DAILYPRN PRN PO CONSTIPATION 10/06/19 20:45 Olanzapine (ZyPREXA ZYDIS) 5 mg Q4HP PRN PO AGITATION 10/06/19 20:45 Omeprazole (PriLOSEC) 20 mg DAILY PO 10/07/19 09:00 10/13/19 08:54 Paliperidone (Invega) 3 mg BID PO 10/06/19 21:00 10/11/19 16:55 DC 10/11/19 08:57 Paliperidone (Invega) 6 mg QHS PO 10/11/19 21:00 10/13/19 21:38 Triamcinolone Acetonide (Kenalog 0.1% Cream) THIN LAYER TO ERYTHEMAT... BID TOP 10/07/19 09:00 10/11/19 21:01 DC 10/11/19 20:46 Triamcinolone Acetonide (Kenalog 0.1% Ointment) THIN LAYER TO ERYTHEMAT... BID TOP 10/07/19 09:00 10/11/19 21:01 DC 10/11/19 20:46 Allergies Coded Allergies: NSAIDS (Non-Steroidal Anti-Inflamma (Verified Allergy, Unknown, 10/06/19) Penicillins (Verified Allergy, Unknown, 10/06/19) naproxen (Verified Allergy, Unknown, 10/06/19) procaine (Verified Allergy, Unknown, 10/06/19) shellfish derived (Verified Allergy, Unknown, 10/06/19) NUVIA GATES DO Oct 14, 2019 09:00
[2019-10-14] MEDS: PALIPERIDONE 3 MG ER TAB (INVEGA) PO SCH (21:08)
[2019-10-15 06:39] VITALS: BP 107/63
[2019-10-15] MEDS: OMEPRAZOLE 20 MG CAP PO SCH (08:36)
[2019-10-15] MEDS: **PENDING PPD ENTRY XX SCH (09:00)
--- NOTE | 2019-10-15 09:00 | MHIPNPDOC ---
[facility] Progress Note Progress Note DATE OF SERVICE: 10/15/19 HISTORY: Patient is a 38 -year-old , female, with a history of paranoid schizophrenia and multiple [facility] admissions in the past who was brought to ED by PD under 9.41 after her aunt called them stating pt was aggressive and has been decompensating recently. Per ED, pt has become increasingly paranoid and delusional at home, denied SI/HI, and stated in the ED that she became angry at her aunt for closing the window in the home. Pt also per ED was very adamant that she was being poisoned by numerous "gases" and "fumes" in the home and therefore opened the windows when her aunt closed them aggressively. In ED pt was insitent that she is being "zapped"by "frequencies in the [place]" that they are "scanning my head." Per ED her speech was rambling and disorganized at times, attention was poor as easily distracted. Pt was unable to answer when she last took her medications or saw her outpatient psychiatrist. Pt denies hallucinations in the ED. She appeared paranoid per ED. Pt seen and states that "the ventilation system was causing exhaust so I went to my room to open the windows... she's always looking for a reaction with weird facial expressions... my dogs" not making much sense and disorganized when see. States she was she wasn't taking invega at home but Tylenol #3 for arthritis. Pt states she feels the same today even with dose of invega 3mg and appears very paranoid of her aunt and "fumes" in her home. She denies SI/HI. Plan to administer invega sustenna for med compliance prior d/c. Pt is a very poor historian. Pt is a very poor historian secondary to psychosis so therefore history gathered from previous hospital records. VITAL SIGNS: See below. NEW TEST RESULTS: See below. CURRENT MEDICATIONS: See below. MENTAL STATUS EXAMINATION: General Appearance: well groomed, appears stated age, hospital scrubs/clothing Build: thin Demeanor: preoccupied, cooperative Eye Contact: fair Activity: resting in bed Behavior: cooperative Speech: clear, normal volume, spontaneous, rambling Mood: resting in bed Mood "I don't feel great... there's too much input" Affect: resting in bed, euthymic but reactive at times Thought Process: concrete, tangential, associative, derailment, paranoid Thought Content (Delusions): grandiose, bizarre, denies SI, HI, AVH, paranoia, delusions Thought Content (Other): preoccupied, guarded, appears paranoid (especially of me, the unit, and invega sustenna) Thought Content (Aggressive): none reported Perception (Hallucinations): none reported Perception (Other): none reported Cognition (Impairment of): attention/concentration, ability to abstract Cognition(Intelligence Est.): average Oriented: Awake, Alert, Oriented times three Insight: poor Judgment: Poor Psychosis: Associations, Abstract Thinking, Psychotic Perceptions DIAGNOSES: Paranoid Schizophrenia ASSESSMENT:Pt seen in room sleeping, a easily woken when I spoke to her. States "I don't feel great... there's too much input". Asked her specifically what didn't feel good and stated her stomach. Advised that some of the food here may not be agreeable to her stomach and to take it easy on some of the heavier foods to improve her stomach discomfort. Appeared to not really understand what I meant. Pt did take her invega sustenna Sunday and so far stated she's tolerating it well with no side effects. Plan for maintenance dose of invega sustenna 156mg im in 2 days. Will monitor pt progress with invega sustenna for continued improvement in psychosis. Per hospital records when pt last d/c from [facility] 05/31/18 after admission for psychosis secondary med noncompliance she had been given invega sustenna prior d/c that she tolerated very well and was beneficial for her symptoms of psychosis and paranoia. Per staff continues to have bizarre, grandiose, and paranoid delusions, is isolative to her room. MANAGEMENT PLAN: continue plan. Invega sustenna 156mg im x1 , d/c oral invega Medications: Invega sustenna 234mg im 10/13/19 TIME SPENT: 30 minutes. Vital Signs Vital Signs Date Time Temp Pulse Resp B/P (MAP) Pulse Ox O2 Delivery O2 Flow Rate FiO2 10/15/19 06:39 98.5 65 16 107/63 (78) 10/13/19 06:30 Room Air Current Medications Current Medications Medications (Trade) Dose Ordered Sig/Tyrone Route PRN Reason Start Time Stop Time Status Last Admin Dose Admin Acetaminophen (Tylenol Tab) 650 mg Q6HP PRN PO HEADACHE or DISCOMFORT 10/06/19 20:45 10/09/19 20:13 Al Hydrox/Mg Hydrox/Simethicone (Mylanta) 30 ml Q4HP PRN PO HEARTBURN/INDIGESTION 10/06/19 20:45 Diphenhydramine HCl (Benadryl Cream) TO ERYTHEMATOUS RASH... QID PRN TOP ITCHING 10/07/19 08:15 10/12/19 08:14 DC Home Med (Med Rec Complete!) ASDIRECTED XX 10/06/19 20:00 10/06/19 19:54 DC Hyoscyamine/Lido/ Alumin/Mag/Simethi (Gi Cocktail) 50 ml Q6HP PRN PO GI UPSET 10/07/19 08:30 Magnesium Hydroxide (Milk Of Magnesia) 30 ml DAILYPRN PRN PO CONSTIPATION 10/06/19 20:45 Olanzapine (ZyPREXA ZYDIS) 5 mg Q4HP PRN PO AGITATION 10/06/19 20:45 Omeprazole (PriLOSEC) 20 mg DAILY PO 10/07/19 09:00 10/13/19 08:54 Paliperidone (Invega) 3 mg BID PO 10/06/19 21:00 10/11/19 16:55 DC 10/11/19 08:57 Paliperidone (Invega) 6 mg QHS PO 10/11/19 21:00 10/14/19 21:08 Triamcinolone Acetonide (Kenalog 0.1% Cream) THIN LAYER TO ERYTHEMAT... BID TOP 10/07/19 09:00 10/11/19 21:01 DC 10/11/19 20:46 Triamcinolone Acetonide (Kenalog 0.1% Ointment) THIN LAYER TO ERYTHEMAT... BID TOP 10/07/19 09:00 10/11/19 21:01 DC 10/11/19 20:46 Allergies Coded Allergies: NSAIDS (Non-Steroidal Anti-Inflamma (Verified Allergy, Unknown, 10/06/19) Penicillins (Verified Allergy, Unknown, 10/06/19) naproxen (Verified Allergy, Unknown, 10/06/19) procaine (Verified Allergy, Unknown, 10/06/19) shellfish derived (Verified Allergy, Unknown, 10/06/19) NUVIA GATES DO Oct 15, 2019 9:00 am
[2019-10-15] MEDS ORDERED: TUBERCULIN PPD 5 UNITS/0.1 ML ID ONE (09:30)
[2019-10-16 06:16] VITALS: BP 118/63
[2019-10-16] MEDS: OMEPRAZOLE 20 MG CAP PO SCH (09:00)
[2019-10-16] MEDS: **PENDING PPD ENTRY XX SCH (09:00)
--- NOTE | 2019-10-16 10:10 | MHIPNPDOC ---
[facility] Progress Note Progress Note DATE OF SERVICE: 10/16/19 HISTORY: Patient is a 38 -year-old , female, with a history of paranoid schizophrenia and multiple [facility] admissions in the past who was brought to ED by PD under 9.41 after her aunt called them stating pt was aggressive and has been decompensating recently. Per ED, pt has become increasingly paranoid and delusional at home, denied SI/HI, and stated in the ED that she became angry at her aunt for closing the window in the home. Pt also per ED was very adamant that she was being poisoned by numerous "gases" and "fumes" in the home and therefore opened the windows when her aunt closed them aggressively. In ED pt was insitent that she is being "zapped"by "frequencies in the [place]" that they are "scanning my head." Per ED her speech was rambling and disorganized at times, attention was poor as easily distracted. Pt was unable to answer when she last took her medications or saw her outpatient psychiatrist. Pt denies hallucinations in the ED. She appeared paranoid per ED. Pt seen and states that "the ventilation system was causing exhaust so I went to my room to open the windows... she's always looking for a reaction with weird facial expressions... my dogs" not making much sense and disorganized when see. States she was she wasn't taking invega at home but Tylenol #3 for arthritis. Pt states she feels the same today even with dose of invega 3mg and appears very paranoid of her aunt and "fumes" in her home. She denies SI/HI. Plan to administer invega sustenna for med compliance prior d/c. Pt is a very poor historian. Pt is a very poor historian secondary to psychosis so therefore history gathered from previous hospital records. VITAL SIGNS: See below. NEW TEST RESULTS: See below. CURRENT MEDICATIONS: See below. MENTAL STATUS EXAMINATION: General Appearance: well groomed, appears stated age, hospital scrubs/clothing Build: thin Demeanor: preoccupied, cooperative, isolative to room mostly Eye Contact: fair Activity: resting in bed, isolative to room mostly Behavior: cooperative Speech: clear, low volume, spontaneous, rambling Mood: resting in bed Mood "I'm sleeping" Affect: resting in bed, euthymic but reactive at times Thought Process: concrete, tangential, associative, derailment, paranoid Thought Content (Delusions): grandiose, bizarre, denies SI, HI, AVH, paranoia, delusions Thought Content (Other): preoccupied, guarded, appears paranoid Thought Content (Aggressive): none reported Perception (Hallucinations): none reported Perception (Other): none reported Cognition (Impairment of): attention/concentration, ability to abstract Cognition(Intelligence Est.): average Oriented: Awake, Alert, Oriented times three Insight: poor Judgment: Poor Psychosis: Associations, Abstract Thinking, Psychotic Perceptions DIAGNOSES: Paranoid Schizophrenia ASSESSMENT:Pt seen in room sleeping, a easily woken when I spoke to her. States she feels better today, just tired. States she eating well. She remains isol ative to her room mostly thru out the day and states she doesn't attend groups b/c she doesn't like them... they make her anxious. Continues to be disorganized with paranoid and bizarre delusions, responding to internal stimuli. Pt did take her invega sustenna Sunday and so far stated she's tolerating it well with no side effects. Will give maintenance dose of invega sustenna 156mg im today. Will monitor pt progress with invega sustenna for continued improvement in psychosis. Per hospital records when pt last d/c from [facility] 05/31/18 after admission for psychosis secondary med noncompliance she had been given invega sustenna prior d/c that she tolerated very well and was beneficial for her symptoms of psychosis and paranoia. Per staff continues to have bizarre, grandiose, and paranoid delusions, is isolative to her room. MANAGEMENT PLAN: continue plan. Invega sustenna 156mg im x1 , d/c oral invega Medications: Invega sustenna 234mg im 10/13/19 Invega sustenna 156mg im x1 today TIME SPENT: 30 minutes. Vital Signs Vital Signs Date Time Temp Pulse Resp B/P (MAP) Pulse Ox O2 Delivery O2 Flow Rate FiO2 10/16/19 06:16 99.3 108 18 118/63 (81) 10/13/19 06:30 Room Air Current Medications Current Medications Medications (Trade) Dose Ordered Sig/Tyrone Route PRN Reason Start Time Stop Time Status Last Admin Dose Admin Acetaminophen (Tylenol Tab) 650 mg Q6HP PRN PO HEADACHE or DISCOMFORT 10/06/19 20:45 10/09/19 20:13 Al Hydrox/Mg Hydrox/Simethicone (Mylanta) 30 ml Q4HP PRN PO HEARTBURN/INDIGESTION 10/06/19 20:45 Diphenhydramine HCl (Benadryl Cream) TO ERYTHEMATOUS RASH... QID PRN TOP ITCHING 10/07/19 08:15 10/12/19 08:14 DC Home Med (Med Rec Complete!) ASDIRECTED XX 10/06/19 20:00 10/06/19 19:54 DC Hyoscyamine/Lido/ Alumin/Mag/Simethi (Gi Cocktail) 50 ml Q6HP PRN PO GI UPSET 10/07/19 08:30 Magnesium Hydroxide (Milk Of Magnesia) 30 ml DAILYPRN PRN PO CONSTIPATION 10/06/19 20:45 Non-Formulary Medication ( See Comment Field Below ) SEE COMMENTS SECTION 1T@10 ID 10/17/19 10:00 10/15/19 09:28 DC Non-Formulary Medication ( See Comment Field Below ) SEE LABEL COMMENTS DAILY XX 10/15/19 09:00 Olanzapine (ZyPREXA ZYDIS) 5 mg Q4HP PRN PO AGITATION 10/06/19 20:45 Omeprazole (PriLOSEC) 20 mg DAILY PO 10/07/19 09:00 10/13/19 08:54 Paliperidone (Invega) 3 mg BID PO 10/06/19 21:00 10/11/19 16:55 DC 10/11/19 08:57 Paliperidone (Invega) 6 mg QHS PO 10/11/19 21:00 10/15/19 09:22 DC 10/14/19 21:08 Triamcinolone Acetonide (Kenalog 0.1% Cream) THIN LAYER TO ERYTHEMAT... BID TOP 10/07/19 09:00 10/11/19 21:01 DC 10/11/19 20:46 Triamcinolone Acetonide (Kenalog 0.1% Ointment) THIN LAYER TO ERYTHEMAT... BID TOP 10/07/19 09:00 10/11/19 21:01 DC 10/11/19 20:46 Allergies Coded Allergies: NSAIDS (Non-Steroidal Anti-Inflamma (Verified Allergy, Unknown, 10/06/19) Penicillins (Verified Allergy, Unknown, 10/06/19) naproxen (Verified Allergy, Unknown, 10/06/19) procaine (Verified Allergy, Unknown, 10/06/19) shellfish derived (Verified Allergy, Unknown, 10/06/19) NUVIA GATES DO Oct 16, 2019 10:10 am
[2019-10-16] MEDS ORDERED: PALIPERIDONE PALMITATE 156MG/1ML INJ(INVEGA)(J2426)(FREE PSY INPT ONLY) IM ONE (15:00)
[2019-10-16 18:00] VITALS: BP 110/64
[2019-10-17 06:08] VITALS: BP 103/57
[2019-10-17] MEDS: OMEPRAZOLE 20 MG CAP PO SCH (09:00)
[2019-10-17] MEDS: **PENDING PPD ENTRY XX SCH (09:00)
--- NOTE | 2019-10-17 09:16 | MHIPNPDOC ---
[facility] Progress Note Progress Note DATE OF SERVICE: 10/17/19 HISTORY: Patient is a 38 -year-old , female, with a history of paranoid schizophrenia and multiple [facility] admissions in the past who was brought to ED by PD under 9.41 after her aunt called them stating pt was aggressive and has been decompensating recently. Per ED, pt has become increasingly paranoid and delusional at home, denied SI/HI, and stated in the ED that she became angry at her aunt for closing the window in the home. Pt also per ED was very adamant that she was being poisoned by numerous "gases" and "fumes" in the home and therefore opened the windows when her aunt closed them aggressively. In ED pt was insitent that she is being "zapped"by "frequencies in the [place]" that they are "scanning my head." Per ED her speech was rambling and disorganized at times, attention was poor as easily distracted. Pt was unable to answer when she last took her medications or saw her outpatient psychiatrist. Pt denies hallucinations in the ED. She appeared paranoid per ED. Pt seen and states that "the ventilation system was causing exhaust so I went to my room to open the windows... she's always looking for a reaction with weird facial expressions... my dogs" not making much sense and disorganized when see. States she was she wasn't taking invega at home but Tylenol #3 for arthritis. Pt states she feels the same today even with dose of invega 3mg and appears very paranoid of her aunt and "fumes" in her home. She denies SI/HI. Plan to administer invega sustenna for med compliance prior d/c. Pt is a very poor historian. Pt is a very poor historian secondary to psychosis so therefore history gathered from previous hospital records. VITAL SIGNS: See below. NEW TEST RESULTS: See below. CURRENT MEDICATIONS: See below. MENTAL STATUS EXAMINATION: General Appearance: well groomed, appears stated age, hospital scrubs/clothing Build: thin Demeanor: preoccupied, cooperative, isolative to room mostly Eye Contact: fair Activity: resting in bed, isolative to room mostly Behavior: cooperative Speech: clear, low volume, spontaneous, rambling Mood: resting in bed Mood "I'm sleeping" Affect: resting in bed, euthymic but reactive at times Thought Process: concrete, tangential, associative, derailment, paranoid Thought Content (Delusions): grandiose, bizarre, denies SI, HI, AVH, paranoia, delusions Thought Content (Other): preoccupied, guarded, appears paranoid Thought Content (Aggressive): none reported Perception (Hallucinations): none reported Perception (Other): none reported Cognition (Impairment of): attention/concentration, ability to abstract Cognition(Intelligence Est.): average Oriented: Awake, Alert, Oriented times three Insight: poor Judgment: Poor Psychosis: Associations, Abstract Thinking, Psychotic Perceptions DIAGNOSES: Paranoid Schizophrenia ASSESSMENT:Pt seen in room in bed staring at the ceiling. States she feels better, more like herself. States she eating and listening to the radio telling her jokes that are funny even though she doesn't fully understand them. She remains isolative to her room mostly thru out the day and states she doesn't attend groups b/c she doesn't like them... they make her anxious. Continues to be disorganized with paranoid and bizarre delusions, responding to internal stimuli. Pt did take her invega sustenna 156mg im yesterday and so far stated she's tolerating it well with no side effects. Will monitor pt progress with invega sustenna for continued improvement in psychosis. Per hospital records when pt last d/c from [facility] 05/31/18 after admission for psychosis secondary med noncompliance she had been given invega sustenna prior d/c that she tolerated very well and was beneficial for her symptoms of psychosis and paranoia. Per staff continues to have bizarre, grandiose, and paranoid delusions, is isolative to her room. MANAGEMENT PLAN: continue plan. Invega sustenna 156mg im x1 , d/c oral invega Medications: Invega sustenna 234mg im 10/13/19 Invega sustenna 156mg im x1 today TIME SPENT: 30 minutes. Vital Signs Vital Signs Date Time Temp Pulse Resp B/P (MAP) Pulse Ox O2 Delivery O2 Flow Rate FiO2 10/17/19 06:08 97.8 78 14 103/57 (72) 10/13/19 06:30 Room Air Current Medications Current Medications Medications (Trade) Dose Ordered Sig/Tyrone Route PRN Reason Start Time Stop Time Status Last Admin Dose Admin Acetaminophen (Tylenol Tab) 650 mg Q6HP PRN PO HEADACHE or DISCOMFORT 10/06/19 20:45 10/09/19 20:13 Al Hydrox/Mg Hydrox/Simethicone (Mylanta) 30 ml Q4HP PRN PO HEARTBURN/INDIGESTION 10/06/19 20:45 Diphenhydramine HCl (Benadryl Cream) TO ERYTHEMATOUS RASH... QID PRN TOP ITCHING 10/07/19 08:15 10/12/19 08:14 DC Home Med (Med Rec Complete!) ASDIRECTED XX 10/06/19 20:00 10/06/19 19:54 DC Hyoscyamine/Lido/ Alumin/Mag/Simethi (Gi Cocktail) 50 ml Q6HP PRN PO GI UPSET 10/07/19 08:30 Magnesium Hydroxide (Milk Of Magnesia) 30 ml DAILYPRN PRN PO CONSTIPATION 10/06/19 20:45 Non-Formulary Medication ( See Comment Field Below ) SEE COMMENTS SECTION 1T@10 ID 10/17/19 10:00 10/15/19 09:28 DC Non-Formulary Medication ( See Comment Field Below ) SEE LABEL COMMENTS DAILY XX 10/15/19 09:00 Olanzapine (ZyPREXA ZYDIS) 5 mg Q4HP PRN PO AGITATION 10/06/19 20:45 Omeprazole (PriLOSEC) 20 mg DAILY PO 10/07/19 09:00 10/13/19 08:54 Paliperidone (Invega) 3 mg BID PO 10/06/19 21:00 10/11/19 16:55 DC 10/11/19 08:57 Paliperidone (Invega) 6 mg QHS PO 10/11/19 21:00 10/15/19 09:22 DC 10/14/19 21:08 Triamcinolone Acetonide (Kenalog 0.1% Cream) THIN LAYER TO ERYTHEMAT... BID TOP 10/07/19 09:00 10/11/19 21:01 DC 10/11/19 20:46 Triamcinolone Acetonide (Kenalog 0.1% Ointment) THIN LAYER TO ERYTHEMAT... BID TOP 10/07/19 09:00 10/11/19 21:01 DC 10/11/19 20:46 Allergies Coded Allergies: NSAIDS (Non-Steroidal Anti-Inflamma (Verified Allergy, Unknown, 10/06/19) Penicillins (Verified Allergy, Unknown, 10/06/19) naproxen (Verified Allergy, Unknown, 10/06/19) procaine (Verified Allergy, Unknown, 10/06/19) shellfish derived (Verified Allergy, Unknown, 10/06/19) NUVIA GATES DO Oct 17, 2019 9:16 am
[2019-10-17] MEDS ORDERED: PPD DOCUMENTATION ENTRY MISC ID SCH (10:00)
[2019-10-17 16:13] VITALS: BP 112/57
[2019-10-18 06:23] VITALS: BP 128/73
[2019-10-18] MEDS: **PENDING PPD ENTRY XX SCH (09:45)
[2019-10-18] MEDS: OMEPRAZOLE 20 MG CAP PO SCH (09:45)
[2019-10-18 15:36] VITALS: BP 115/62
[2019-10-19 06:36] VITALS: BP 107/57
[2019-10-19] MEDS: OMEPRAZOLE 20 MG CAP PO SCH (09:00)
[2019-10-19] MEDS: **PENDING PPD ENTRY XX SCH (09:00)
[2019-10-19 15:43] VITALS: BP 109/57
[2019-10-20 06:50] VITALS: BP 118/68
[2019-10-20] MEDS: **PENDING PPD ENTRY XX SCH (09:00)
[2019-10-20] MEDS: OMEPRAZOLE 20 MG CAP PO SCH (09:20)
[2019-10-20 16:16] VITALS: BP 95/51
[2019-10-21 06:36] VITALS: BP 106/54
[2019-10-21] MEDS: OMEPRAZOLE 20 MG CAP PO SCH (09:00)
[2019-10-21] MEDS: **PENDING PPD ENTRY XX SCH (09:00)
--- NOTE | 2019-10-21 09:41 | MHIPNPDOC ---
[facility] Progress Note Progress Note DATE OF SERVICE: 10/21/19 HISTORY: Patient is a 38 -year-old , female, with a history of paranoid schizophrenia and multiple [facility] admissions in the past who was brought to ED by PD under 9.41 after her aunt called them stating pt was aggressive and has been decompensating recently. Per ED, pt has become increasingly paranoid and delusional at home, denied SI/HI, and stated in the ED that she became angry at her aunt for closing the window in the home. Pt also per ED was very adamant that she was being poisoned by numerous "gases" and "fumes" in the home and therefore opened the windows when her aunt closed them aggressively. In ED pt was insitent that she is being "zapped"by "frequencies in the [place]" that they are "scanning my head." Per ED her speech was rambling and disorganized at times, attention was poor as easily distracted. Pt was unable to answer when she last took her medications or saw her outpatient psychiatrist. Pt denies hallucinations in the ED. She appeared paranoid per ED. Pt seen and states that "the ventilation system was causing exhaust so I went to my room to open the windows... she's always looking for a reaction with weird facial expressions... my dogs" not making much sense and disorganized when see. States she was she wasn't taking invega at home but Tylenol #3 for arthritis. Pt states she feels the same today even with dose of invega 3mg and appears very paranoid of her aunt and "fumes" in her home. She denies SI/HI. Plan to administer invega sustenna for med compliance prior d/c. Pt is a very poor historian. Pt is a very poor historian secondary to psychosis so therefore history gathered from previous hospital records. VITAL SIGNS: See below. NEW TEST RESULTS: See below. CURRENT MEDICATIONS: See below. MENTAL STATUS EXAMINATION: General Appearance: well groomed, appears stated age, hospital scrubs/clothing Build: thin Demeanor: preoccupied, cooperative, isolative to room mostly Eye Contact: fair Activity: resting in bed, isolative to room mostly Behavior: cooperative Speech: clear, low volume, spontaneous, rambling Mood: resting in bed Mood "I'm sleeping" Affect: resting in bed, euthymic but reactive at times Thought Process: concrete, tangential, associative, derailment, paranoid Thought Content (Delusions): grandiose, bizarre, denies SI, HI, AVH, paranoia, delusions Thought Content (Other): preoccupied, guarded, appears paranoid Thought Content (Aggressive): none reported Perception (Hallucinations): none reported Perception (Other): none reported Cognition (Impairment of): attention/concentration, ability to abstract Cognition(Intelligence Est.): average Oriented: Awake, Alert, Oriented times three Insight: poor Judgment: Poor Psychosis: Associations, Abstract Thinking, Psychotic Perceptions DIAGNOSES: Paranoid Schizophrenia ASSESSMENT:Pt seen in room in bed writing on a sheet of papers "pattern I associate with a lot of intensity and activity like groups, getting my invega which is kind of like a cruise I took when you're going [place] and a lot of people are disembarking when you stop at one and drums are playing." She is calm and cooperative but disorganized and appears to have no insight into her thoughts. She remains isolative to her room mostly thru out the day and states she doesn't attend groups b/c she doesn't like them... they make her anxious. Continues to be disorganized with paranoid and bizarre delusions, responding to internal stimuli. Pt did take her invega sustenna 156mg im yesterday and so far stated she's tolerating it well with no side effects. Will monitor pt progress with invega sustenna for continued improvement in psychosis and add haldol at night for continued psychosis after invega sustenna given. Per hospital records when pt last d/c from [facility] 05/31/18 after admission for psychosis secondary med noncompliance she had been given invega sustenna prior d/c that she tolerated very well and was beneficial for her symptoms of psychosis and paranoia. Per staff continues to have bizarre, grandiose, and paranoid delusions, is isolative to her room, and disorganized. MANAGEMENT PLAN: continue plan. add haldol 5mg qhs for continued psychosis after invega sustenna given Medications: Invega sustenna 234mg im 10/13/19 Invega sustenna 156mg im 10/16/19 haldol 5mg qhs TIME SPENT: 30 minutes. Vital Signs Vital Signs Date Time Temp Pulse Resp B/P (MAP) Pulse Ox O2 Delivery O2 Flow Rate FiO2 10/21/19 06:36 97.0 82 12 106/54 (71) Room Air Current Medications Current Medications Medications (Trade) Dose Ordered Sig/Tyrone Route PRN Reason Start Time Stop Time Status Last Admin Dose Admin Acetaminophen (Tylenol Tab) 650 mg Q6HP PRN PO HEADACHE or DISCOMFORT 10/06/19 20:45 10/09/19 20:13 Al Hydrox/Mg Hydrox/Simethicone (Mylanta) 30 ml Q4HP PRN PO HEARTBURN/INDIGESTION 10/06/19 20:45 Diphenhydramine HCl (Benadryl Cream) TO ERYTHEMATOUS RASH... QID PRN TOP ITCHING 10/07/19 08:15 10/12/19 08:14 DC Home Med (Med Rec Complete!) ASDIRECTED XX 10/06/19 20:00 10/06/19 19:54 DC Hyoscyamine/Lido/ Alumin/Mag/Simethi (Gi Cocktail) 50 ml Q6HP PRN PO GI UPSET 10/07/19 08:30 Magnesium Hydroxide (Milk Of Magnesia) 30 ml DAILYPRN PRN PO CONSTIPATION 10/06/19 20:45 Non-Formulary Medication ( See Comment Field Below ) SEE COMMENTS SECTION 1T@10 ID 10/17/19 10:00 10/15/19 09:28 DC Non-Formulary Medication ( See Comment Field Below ) SEE LABEL COMMENTS DAILY XX 10/15/19 09:00 Olanzapine (ZyPREXA ZYDIS) 5 mg Q4HP PRN PO AGITATION 10/06/19 20:45 Omeprazole (PriLOSEC) 20 mg DAILY PO 10/07/19 09:00 10/21/19 09:00 Paliperidone (Invega) 3 mg BID PO 10/06/19 21:00 10/11/19 16:55 DC 10/11/19 08:57 Paliperidone (Invega) 6 mg QHS PO 10/11/19 21:00 10/15/19 09:22 DC 10/14/19 21:08 Triamcinolone Acetonide (Kenalog 0.1% Cream) THIN LAYER TO ERYTHEMAT... BID TOP 10/07/19 09:00 10/11/19 21:01 DC 10/11/19 20:46 Triamcinolone Acetonide (Kenalog 0.1% Ointment) THIN LAYER TO ERYTHEMAT... BID TOP 10/07/19 09:00 10/11/19 21:01 DC 10/11/19 20:46 Allergies Coded Allergies: NSAIDS (Non-Steroidal Anti-Inflamma (Verified Allergy, Unknown, 10/06/19) Penicillins (Verified Allergy, Unknown, 10/06/19) naproxen (Verified Allergy, Unknown, 10/06/19) procaine (Verified Allergy, Unknown, 10/06/19) shellfish derived (Verified Allergy, Unknown, 10/06/19) NUVIA GATES DO Oct 21, 2019 9:41 am
[2019-10-21] MEDS ORDERED: PALIPERIDONE PALMITATE 156MG/1ML INJ(INVEGA)(J2426)(FREE PSY INPT ONLY) IM ONE (14:00)
[2019-10-21 16:30] VITALS: BP 95/59
[2019-10-21] MEDS: haloperidoL 5 MG TAB PO SCH (21:00)
[2019-10-22 06:36] VITALS: BP 100/54
[2019-10-22] MEDS: **PENDING PPD ENTRY XX SCH (09:00)
[2019-10-22] MEDS: OMEPRAZOLE 20 MG CAP PO SCH (09:34)
--- NOTE | 2019-10-22 10:22 | MHIPNPDOC ---
[facility] Progress Note Progress Note DATE OF SERVICE: 10/22/19 HISTORY: Patient is a 38 -year-old , female, with a history of paranoid schizophrenia and multiple [facility] admissions in the past who was brought to ED by PD under 9.41 after her aunt called them stating pt was aggressive and has been decompensating recently. Per ED, pt has become increasingly paranoid and delusional at home, denied SI/HI, and stated in the ED that she became angry at her aunt for closing the window in the home. Pt also per ED was very adamant that she was being poisoned by numerous "gases" and "fumes" in the home and therefore opened the windows when her aunt closed them aggressively. In ED pt was insitent that she is being "zapped"by "frequencies in the [place]" that they are "scanning my head." Per ED her speech was rambling and disorganized at times, attention was poor as easily distracted. Pt was unable to answer when she last took her medications or saw her outpatient psychiatrist. Pt denies hallucinations in the ED. She appeared paranoid per ED. Pt seen and states that "the ventilation system was causing exhaust so I went to my room to open the windows... she's always looking for a reaction with weird facial expressions... my dogs" not making much sense and disorganized when see. States she was she wasn't taking invega at home but Tylenol #3 for arthritis. Pt states she feels the same today even with dose of invega 3mg and appears very paranoid of her aunt and "fumes" in her home. She denies SI/HI. Plan to administer invega sustenna for med compliance prior d/c. Pt is a very poor historian. Pt is a very poor historian secondary to psychosis so therefore history gathered from previous hospital records. VITAL SIGNS: See below. NEW TEST RESULTS: See below. CURRENT MEDICATIONS: See below. MENTAL STATUS EXAMINATION: General Appearance: well groomed, appears stated age, hospital scrubs/clothing Build: thin Demeanor: preoccupied, cooperative, isolative to room mostly Eye Contact: fair Activity: resting in bed, isolative to room mostly Behavior: cooperative Speech: clear, low volume, spontaneous, rambling Mood: euthymic Mood "ok" Affect: euthymic Thought Process: concrete, tangential, associative, derailment, paranoid Thought Content (Delusions): grandiose, bizarre, denies SI, HI, AH of music that is up beat playing briefly in her room from time to time, denies VH, paranoia, delusions Thought Content (Other): preoccupied, guarded, appears paranoid Thought Content (Aggressive): none reported Perception (Hallucinations): AH of music that is up beat playing briefly in her room from time to time Perception (Other): none reported Cognition (Impairment of): attention/concentration, ability to abstract Cognition(Intelligence Est.): average Oriented: Awake, Alert, Oriented times three Insight: poor Judgment: Poor Psychosis: Associations, Abstract Thinking, Psychotic Perceptions DIAGNOSES: Paranoid Schizophrenia ASSESSMENT:Pt seen in office today stating she took her second dose of invega sustenna yesterday and felt a "zap" initially for a few seconds that went away and know denies any side effects from it. She is calm and cooperative but disorganized and talking of upbeat music "like in movies like [employer] and the [employer], like with fairies jumping around, up beat". Ask pt questions but she answers them in a concrete, disorganized fashion that doesn't really pertain to the question asked. Meet with [facility] and confused by services they offer, asking if [place] is a big city with a lot of traffic stating she doesn't know the area well even though she's lived in this area for years. Continues to be disorganized with paranoid and bizarre delusions, responding to internal stimuli. Pt did take her invega sustenna 156mg im yesterday and so far stated she's tolerating it well with no side effects. Will monitor pt progress with invega sustenna for continued improvement in psychosis and refusing haldol stating it tastes bad, doesn't like it, doesn't want to take it, but gave no real valid reason as to why she refusing it other than just not wanting to take it. Encouraged to take it to help her.. Per hospital records when pt last d/c from [facility] 05/31/18 after admission for psychosis secondary med noncompliance she had been given invega sustenna prior d/c that she tolerated very well and was beneficial for her symptoms of psychosis and paranoia. Per staff continues to have bizarre, grandiose, and paranoid delusions, is isolative to her room, and disorganized. MANAGEMENT PLAN: continue plan. Medications: Invega sustenna 234mg im 10/13/19 Invega sustenna 156mg im 10/21/19 haldol 5mg qhs TIME SPENT: 30 minutes. Vital Signs Vital Signs Date Time Temp Pulse Resp B/P (MAP) Pulse Ox O2 Delivery O2 Flow Rate FiO2 10/22/19 08:02 Room Air 10/22/19 06:36 98.0 67 12 100/54 (69) Current Medications Current Medications Medications (Trade) Dose Ordered Sig/Tyrone Route PRN Reason Start Time Stop Time Status Last Admin Dose Admin Acetaminophen (Tylenol Tab) 650 mg Q6HP PRN PO HEADACHE or DISCOMFORT 10/06/19 20:45 10/09/19 20:13 Al Hydrox/Mg Hydrox/Simethicone (Mylanta) 30 ml Q4HP PRN PO HEARTBURN/INDIGESTION 10/06/19 20:45 Diphenhydramine HCl (Benadryl Cream) TO ERYTHEMATOUS RASH... QID PRN TOP ITCHING 10/07/19 08:15 10/12/19 08:14 DC Haloperidol (Haldol) 5 mg QHS PO 10/21/19 21:00 Home Med (Med Rec Complete!) ASDIRECTED XX 10/06/19 20:00 10/06/19 19:54 DC Hyoscyamine/Lido/ Alumin/Mag/Simethi (Gi Cocktail) 50 ml Q6HP PRN PO GI UPSET 10/07/19 08:30 Magnesium Hydroxide (Milk Of Magnesia) 30 ml DAILYPRN PRN PO CONSTIPATION 10/06/19 20:45 Non-Formulary Medication ( See Comment Field Below ) SEE COMMENTS SECTION 1T@10 ID 10/17/19 10:00 10/15/19 09:28 DC Non-Formulary Medication ( See Comment Field Below ) SEE LABEL COMMENTS DAILY XX 10/15/19 09:00 Olanzapine (ZyPREXA ZYDIS) 5 mg Q4HP PRN PO AGITATION 10/06/19 20:45 Omeprazole (PriLOSEC) 20 mg DAILY PO 10/07/19 09:00 10/21/19 09:00 Paliperidone (Invega) 3 mg BID PO 10/06/19 21:00 10/11/19 16:55 DC 10/11/19 08:57 Paliperidone (Invega) 6 mg QHS PO 10/11/19 21:00 10/15/19 09:22 DC 10/14/19 21:08 Triamcinolone Acetonide (Kenalog 0.1% Cream) THIN LAYER TO ERYTHEMAT... BID TOP 10/07/19 09:00 10/11/19 21:01 DC 10/11/19 20:46 Triamcinolone Acetonide (Kenalog 0.1% Ointment) THIN LAYER TO ERYTHEMAT... BID TOP 10/07/19 09:00 10/11/19 21:01 DC 10/11/19 20:46 Allergies Coded Allergies: NSAIDS (Non-Steroidal Anti-Inflamma (Verified Allergy, Unknown, 10/06/19) Penicillins (Verified Allergy, Unknown, 10/06/19) naproxen (Verified Allergy, Unknown, 10/06/19) procaine (Verified Allergy, Unknown, 10/06/19) shellfish derived (Verified Allergy, Unknown, 10/06/19) NUVIA GATES DO Oct 22, 2019 8:44 am
[2019-10-22 16:18] VITALS: BP 105/60
[2019-10-22] MEDS: haloperidoL 5 MG TAB PO SCH (22:09)
[2019-10-23 06:31] VITALS: BP 126/64
[2019-10-23] MEDS: **PENDING PPD ENTRY XX SCH (09:00)
--- NOTE | 2019-10-23 09:40 | MHIPNPDOC ---
[facility] Progress Note Progress Note DATE OF SERVICE: 10/23/19 HISTORY: Patient is a 38 -year-old , female, with a history of paranoid schizophrenia and multiple [facility] admissions in the past who was brought to ED by PD under 9.41 after her aunt called them stating pt was aggressive and has been decompensating recently. Per ED, pt has become increasingly paranoid and delusional at home, denied SI/HI, and stated in the ED that she became angry at her aunt for closing the window in the home. Pt also per ED was very adamant that she was being poisoned by numerous "gases" and "fumes" in the home and therefore opened the windows when her aunt closed them aggressively. In ED pt was insitent that she is being "zapped"by "frequencies in the [place]" that they are "scanning my head." Per ED her speech was rambling and disorganized at times, attention was poor as easily distracted. Pt was unable to answer when she last took her medications or saw her outpatient psychiatrist. Pt denies hallucinations in the ED. She appeared paranoid per ED. Pt seen and states that "the ventilation system was causing exhaust so I went to my room to open the windows... she's always looking for a reaction with weird facial expressions... my dogs" not making much sense and disorganized when see. States she was she wasn't taking invega at home but Tylenol #3 for arthritis. Pt states she feels the same today even with dose of invega 3mg and appears very paranoid of her aunt and "fumes" in her home. She denies SI/HI. Plan to administer invega sustenna for med compliance prior d/c. Pt is a very poor historian. Pt is a very poor historian secondary to psychosis so therefore history gathered from previous hospital records. VITAL SIGNS: See below. NEW TEST RESULTS: See below. CURRENT MEDICATIONS: See below. MENTAL STATUS EXAMINATION: General Appearance: well groomed, appears stated age, hospital scrubs/clothing Build: thin Demeanor: preoccupied, cooperative, isolative to room mostly Eye Contact: fair Activity: resting in bed, isolative to room mostly Behavior: cooperative Speech: clear, low volume, spontaneous, rambling Mood: euthymic Mood "ok" Affect: euthymic Thought Process: concrete, tangential, associative, derailment, paranoid Thought Content (Delusions): grandiose, bizarre, denies SI, HI, AH of music that is up beat playing briefly in her room from time to time, denies VH, paranoia, delusions Thought Content (Other): preoccupied, guarded, appears paranoid Thought Content (Aggressive): none reported Perception (Hallucinations): AH of music that is up beat playing briefly in her room from time to time Perception (Other): none reported Cognition (Impairment of): attention/concentration, ability to abstract Cognition(Intelligence Est.): average Oriented: Awake, Alert, Oriented times three Insight: poor Judgment: Poor Psychosis: Associations, Abstract Thinking, Psychotic Perceptions DIAGNOSES: Paranoid Schizophrenia ASSESSMENT:Pt seen for administrative hearing regarding transfer to [facility] and transfer approved. During hearing pt disorganized often talking of treatment in [place], living in [place] with no real recollection that she's been living in [facility] for years and having had treatment in the area and at this hospital previously. Answered may questions in a very concrete fashion that at times didn't correlate with the question asked. Continued to refuse haldol during hearing. Did not appear to understand that she has not place to go as aunt isn't allowing her back into her home thinking she could just move into her own apt immediately. Still endorsing paranoia regard her aunt talking as if it's all her aunt that is the problem and not her. Pt seen in her room today, malodorous due to not showering for several days stating she ok. Asked her to shower today and stated ok then went back to sleeping. Refused her haldol again yesterday. Per yesterday's note: "She is calm and cooperative but disorganized and talking of upbeat music "like in movies like [place] [employer] and the [employer], like with fairies jumping around, up beat". Ask pt questions but she answers them in a concrete, disorganized fashion that doesn't really pertain to the question asked. Meet with [facility] and confused by services they offer, asking if [place] is a big city with a lot of traffic stating she doesn't know the area well even though she's lived in this area for years. Continues to be disorganized with paranoid and bizarre delusions, responding to internal stimuli." Per hospital records when pt last d/c from [facility] 05/31/18 after admission for psychosis secondary med noncompliance she had been given invega sustenna prior d/c that she tolerated very well and was beneficial for her symptoms of psychosis and paranoia. Per staff continues to have bizarre, gr andiose, and paranoid delusions, is isolative to her room, and disorganized. MANAGEMENT PLAN: continue plan. Medications: Invega sustenna 234mg im 10/13/19 Invega sustenna 156mg im 10/21/19 haldol 5mg qhs TIME SPENT: 30 minutes. Vital Signs Vital Signs Date Time Temp Pulse Resp B/P (MAP) Pulse Ox O2 Delivery O2 Flow Rate FiO2 10/23/19 08:20 Room Air 10/23/19 06:31 99.2 68 16 126/64 (84) Current Medications Current Medications Medications (Trade) Dose Ordered Sig/Tyrone Route PRN Reason Start Time Stop Time Status Last Admin Dose Admin Acetaminophen (Tylenol Tab) 650 mg Q6HP PRN PO HEADACHE or DISCOMFORT 10/06/19 20:45 10/09/19 20:13 Al Hydrox/Mg Hydrox/Simethicone (Mylanta) 30 ml Q4HP PRN PO HEARTBURN/INDIGESTION 10/06/19 20:45 Diphenhydramine HCl (Benadryl Cream) TO ERYTHEMATOUS RASH... QID PRN TOP ITCHING 10/07/19 08:15 10/12/19 08:14 DC Haloperidol (Haldol) 5 mg QHS PO 10/21/19 21:00 Home Med (Med Rec Complete!) ASDIRECTED XX 10/06/19 20:00 10/06/19 19:54 DC Hyoscyamine/Lido/ Alumin/Mag/Simethi (Gi Cocktail) 50 ml Q6HP PRN PO GI UPSET 10/07/19 08:30 Magnesium Hydroxide (Milk Of Magnesia) 30 ml DAILYPRN PRN PO CONSTIPATION 10/06/19 20:45 Non-Formulary Medication ( See Comment Field Below ) SEE COMMENTS SECTION 1T@10 ID 10/17/19 10:00 10/15/19 09:28 DC Non-Formulary Medication ( See Comment Field Below ) SEE LABEL COMMENTS DAILY XX 10/15/19 09:00 Olanzapine (ZyPREXA ZYDIS) 5 mg Q4HP PRN PO AGITATION 10/06/19 20:45 Omeprazole (PriLOSEC) 20 mg DAILY PO 10/07/19 09:00 10/22/19 09:34 Paliperidone (Invega) 3 mg BID PO 10/06/19 21:00 10/11/19 16:55 DC 10/11/19 08:57 Paliperidone (Invega) 6 mg QHS PO 10/11/19 21:00 10/15/19 09:22 DC 10/14/19 21:08 Triamcinolone Acetonide (Kenalog 0.1% Cream) THIN LAYER TO ERYTHEMAT... BID TOP 10/07/19 09:00 10/11/19 21:01 DC 10/11/19 20:46 Triamcinolone Acetonide (Kenalog 0.1% Ointment) THIN LAYER TO ERYTHEMAT... BID TOP 10/07/19 09:00 10/11/19 21:01 DC 10/11/19 20:46 Allergies Coded Allergies: NSAIDS (Non-Steroidal Anti-Inflamma (Verified Allergy, Unknown, 10/06/19) Penicillins (Verified Allergy, Unknown, 10/06/19) naproxen (Verified Allergy, Unknown, 10/06/19) procaine (Verified Allergy, Unknown, 10/06/19) shellfish derived (Verified Allergy, Unknown, 10/06/19) NUVIA GATES DO Oct 23, 2019 9:40 am
[2019-10-23] MEDS: OMEPRAZOLE 20 MG CAP PO SCH (09:41)
[2019-10-23 16:33] VITALS: BP 84/48
[2019-10-23] MEDS: haloperidoL 5 MG TAB PO SCH (20:18)
[2019-10-24 06:37] VITALS: BP 125/79
[2019-10-24] MEDS: **PENDING PPD ENTRY XX SCH (09:00)
[2019-10-24] MEDS: OMEPRAZOLE 20 MG CAP PO SCH (09:10)
--- NOTE | 2019-10-24 09:11 | MHIPNPDOC ---
[facility] Progress Note Progress Note DATE OF SERVICE: 10/24/19 HISTORY: Patient is a 38 -year-old , female, with a history of paranoid schizophrenia and multiple [facility] admissions in the past who was brought to ED by PD under 9.41 after her aunt called them stating pt was aggressive and has been decompensating recently. Per ED, pt has become increasingly paranoid and delusional at home, denied SI/HI, and stated in the ED that she became angry at her aunt for closing the window in the home. Pt also per ED was very adamant that she was being poisoned by numerous "gases" and "fumes" in the home and therefore opened the windows when her aunt closed them aggressively. In ED pt was insitent that she is being "zapped"by "frequencies in the [place]" that they are "scanning my head." Per ED her speech was rambling and disorganized at times, attention was poor as easily distracted. Pt was unable to answer when she last took her medications or saw her outpatient psychiatrist. Pt denies hallucinations in the ED. She appeared paranoid per ED. Pt seen and states that "the ventilation system was causing exhaust so I went to my room to open the windows... she's always looking for a reaction with weird facial expressions... my dogs" not making much sense and disorganized when see. States she was she wasn't taking invega at home but Tylenol #3 for arthritis. Pt states she feels the same today even with dose of invega 3mg and appears very paranoid of her aunt and "fumes" in her home. She denies SI/HI. Plan to administer invega sustenna for med compliance prior d/c. Pt is a very poor historian. Pt is a very poor historian secondary to psychosis so therefore history gathered from previous hospital records. VITAL SIGNS: See below. NEW TEST RESULTS: See below. CURRENT MEDICATIONS: See below. MENTAL STATUS EXAMINATION: General Appearance: well groomed, appears stated age, hospital scrubs/clothing Build: thin Demeanor: preoccupied, cooperative, isolative to room mostly Eye Contact: fair Activity: resting in bed, isolative to room mostly Behavior: cooperative Speech: clear, low volume, spontaneous, rambling Mood: euthymic Mood "ok" Affect: euthymic Thought Process: concrete, tangential, associative, derailment, paranoid Thought Content (Delusions): grandiose, bizarre, denies SI, HI, AH radio playing periodically on unit talking rights and wrongs, denies VH, paranoia, delusions Thought Content (Other): preoccupied, guarded, appears paranoid Thought Content (Aggressive): none reported Perception (Hallucinations): AH radio playing periodically on unit talking rights and wrongs, Perception (Other): none reported Cognition (Impairment of): attention/concentration, ability to abstract Cognition(Intelligence Est.): average Oriented: Awake, Alert, Oriented times three Insight: poor Judgment: Poor Psychosis: Associations, Abstract Thinking, Psychotic Perceptions DIAGNOSES: Paranoid Schizophrenia ASSESSMENT:Pt seen for administrative hearing regarding transfer [place] [facility] and transfer approved on Sunday. During hearing pt disorganized often talking of treatment in [place], living in [place] with no real recollection that she's been living in [facility] for years and having had treatment in the area and at this hospital previously. Answered may questions in a very concrete fashion that at times didn't correlate with the question asked. Continued to refuse h aldol during hearing. Did not appear to understand that she has not place to go as aunt isn't allowing her back into her home thinking she could just move into her own apt immediately. Still endorsing paranoia regard her aunt talking as if it's all her aunt that is the problem and not her. Pt seen in her room today, malodorous still due to not showering for several days stating she ok. Asked her to shower again today and stated ist's cold which is why she's isn't showering and encouraged to take one with hot water as needs to shower today. Refused her haldol again yesterday. Continues to endorse AH of the radio playing periodically during the day talking about right things and wrong things. Continues to be isolative to her room. Per hospital records when pt last d/c from [facility] 05/31/18 after admission for psychosis secondary med noncompliance she had been given invega sustenna prior d/c that she tolerated very well and was beneficial for her symptoms of psychosis and paranoia. Per staff continues to have internal stimuli and paranoid delusions, is isolative to her room, and disorganized. MANAGEMENT PLAN: continue plan. Medications: Invega sustenna 234mg im 10/13/19 Invega sustenna 156mg im 10/21/19 haldol 5mg qhs TIME SPENT: 30 minutes. Vital Signs Vital Signs Date Time Temp Pulse Resp B/P (MAP) Pulse Ox O2 Delivery O2 Flow Rate FiO2 10/24/19 06:37 98.0 93 16 125/79 (94) 10/23/19 08:20 Room Air Current Medications Current Medications Medications (Trade) Dose Ordered Sig/Tyrone Route PRN Reason Start Time Stop Time Status Last Admin Dose Admin Acetaminophen (Tylenol Tab) 650 mg Q6HP PRN PO HEADACHE or DISCOMFORT 10/06/19 20:45 10/09/19 20:13 Al Hydrox/Mg Hydrox/Simethicone (Mylanta) 30 ml Q4HP PRN PO HEARTBURN/INDIGESTION 10/06/19 20:45 Diphenhydramine HCl (Benadryl Cream) TO ERYTHEMATOUS RASH... QID PRN TOP ITCHING 10/07/19 08:15 10/12/19 08:14 DC Haloperidol (Haldol) 5 mg QHS PO 10/21/19 21:00 Home Med (Med Rec Complete!) ASDIRECTED XX 10/06/19 20:00 10/06/19 19:54 DC Hyoscyamine/Lido/ Alumin/Mag/Simethi (Gi Cocktail) 50 ml Q6HP PRN PO GI UPSET 10/07/19 08:30 Magnesium Hydroxide (Milk Of Magnesia) 30 ml DAILYPRN PRN PO CONSTIPATION 10/06/19 20:45 Non-Formulary Medication ( See Comment Field Below ) SEE COMMENTS SECTION 1T@10 ID 10/17/19 10:00 10/15/19 09:28 DC Non-Formulary Medication ( See Comment Field Below ) SEE LABEL COMMENTS DAILY XX 10/15/19 09:00 Olanzapine (ZyPREXA ZYDIS) 5 mg Q4HP PRN PO AGITATION 10/06/19 20:45 Omeprazole (PriLOSEC) 20 mg DAILY PO 10/07/19 09:00 10/23/19 09:41 Paliperidone (Invega) 3 mg BID PO 10/06/19 21:00 10/11/19 16:55 DC 10/11/19 08:57 Paliperidone (Invega) 6 mg QHS PO 10/11/19 21:00 10/15/19 09:22 DC 10/14/19 21:08 Triamcinolone Acetonide (Kenalog 0.1% Cream) THIN LAYER TO ERYTHEMAT... BID TOP 10/07/19 09:00 10/11/19 21:01 DC 10/11/19 20:46 Triamcinolone Acetonide (Kenalog 0.1% Ointment) THIN LAYER TO ERYTHEMAT... BID TOP 10/07/19 09:00 10/11/19 21:01 DC 10/11/19 20:46 Allergies Coded Allergies: NSAIDS (Non-Steroidal Anti-Inflamma (Verified Allergy, Unknown, 10/06/19) Penicillins (Verified Allergy, Unknown, 10/06/19) naproxen (Verified Allergy, Unknown, 10/06/19) procaine (Verified Allergy, Unknown, 10/06/19) shellfish derived (Verified Allergy, Unknown, 10/06/19) NUVIA GATES DO Oct 24, 2019 9:11 am
[2019-10-24 16:30] VITALS: BP 102/59
[2019-10-24] MEDS: haloperidoL 5 MG TAB PO SCH (22:44)
[2019-10-25 06:11] VITALS: BP 113/63
[2019-10-25] MEDS: OMEPRAZOLE 20 MG CAP PO SCH (08:49)
[2019-10-25] MEDS: **PENDING PPD ENTRY XX SCH (08:50)
[2019-10-25 16:10] VITALS: BP 100/59
[2019-10-25] MEDS: haloperidoL 5 MG TAB PO SCH (22:07)
[2019-10-26 06:14] VITALS: BP 100/60
[2019-10-26] MEDS: **PENDING PPD ENTRY XX SCH (09:00)
[2019-10-26] MEDS: OMEPRAZOLE 20 MG CAP PO SCH (09:33)
[2019-10-26 16:00] VITALS: BP 92/51
[2019-10-26] MEDS: haloperidoL 5 MG TAB PO SCH (21:00)
[2019-10-27 06:23] VITALS: BP 119/65
[2019-10-27] MEDS: **PENDING PPD ENTRY XX SCH (09:00)
--- NOTE | 2019-10-27 09:01 | MHIPNPDOC ---
[facility] Progress Note Progress Note DATE OF SERVICE: 10/27/19 HISTORY: Patient is a 38 -year-old , female, with a history of paranoid schizophrenia and multiple [facility] admissions in the past who was brought to ED by PD under 9.41 after her aunt called them stating pt was aggressive and has been decompensating recently. Per ED, pt has become increasingly paranoid and delusional at home, denied SI/HI, and stated in the ED that she became angry at her aunt for closing the window in the home. Pt also per ED was very adamant that she was being poisoned by numerous "gases" and "fumes" in the home and therefore opened the windows when her aunt closed them aggressively. In ED pt was insitent that she is being "zapped"by "frequencies in the [place]" that they are "scanning my head." Per ED her speech was rambling and disorganized at times, attention was poor as easily distracted. Pt was unable to answer when she last took her medications or saw her outpatient psychiatrist. Pt denies hallucinations in the ED. She appeared paranoid per ED. Pt seen and states that "the ventilation system was causing exhaust so I went to my room to open the windows... she's always looking for a reaction with weird facial expressions... my dogs" not making much sense and disorganized when see. States she was she wasn't taking invega at home but Tylenol #3 for arthritis. Pt states she feels the same today even with dose of invega 3mg and appears very paranoid of her aunt and "fumes" in her home. She denies SI/HI. Plan to administer invega sustenna for med compliance prior d/c. Pt is a very poor historian. Pt is a very poor historian secondary to psychosis so therefore history gathered from previous hospital records. VITAL SIGNS: See below. NEW TEST RESULTS: See below. CURRENT MEDICATIONS: See below. MENTAL STATUS EXAMINATION: General Appearance: well groomed, appears stated age, hospital scrubs/clothing Build: thin Demeanor: preoccupied, cooperative, isolative to room mostly Eye Contact: fair Activity: resting in bed, isolative to room mostly Behavior: cooperative Speech: clear, low volume, spontaneous, rambling Mood: euthymic Mood "ok" Affect: euthymic Thought Process: concrete, tangential, associative, derailment, paranoid Thought Content (Delusions): grandiose, bizarre, denies SI, HI, AH radio playing periodically on unit with emotions and doing things, relating at times to what she'd write on paper (ideas of reference?), denies VH, paranoia, delusions Thought Content (Other): preoccupied, guarded, appears paranoid Thought Content (Aggressive): none reported Perception (Hallucinations): AH radio playing periodically on unit with emotions and doing things, relating at times to what she'd write on paper (ideas of reference?) Perception (Other): none reported Cognition (Impairment of): attention/concentration, ability to abstract Cognition(Intelligence Est.): average Oriented: Awake, Alert, Oriented times three Insight: poor Judgment: Poor Psychosis: Associations, Abstract Thinking, Psychotic Perceptions DIAGNOSES: Paranoid Schizophrenia ASSESSMENT:Pt seen for administrative hearing regarding transfer [place] [facility] and [place] approved on Sunday. During hearing pt disorganized often talking of treatment in [place], [place] in [place] with no real recollection that she's been living in [facility] for years and having had treatment in the area and at this hospital previously. Answered may questions in a very concrete fashion that at times didn't correlate with the question asked. Continued to refuse haldol during hearing. Did not appear to understand that she has not place to go as aunt isn't allowing her back into her home thinking she could just move into her own apt immediately. Still endorsing paranoia regard her aunt talking as if it's all her aunt that is the problem and not her. Pt seen in office today, did state she showered over the weekend. States she took haldol a few times over the weekend and noticed a "quiver," refused it last night. Asked pt if she'd try taking it again tonight with some cogentin to prevent her from feeling a "quiver" and she stated OK. Continues to endorse AH of the radio playing periodically during the day talking in different emotions, talking of "touching the chair," confusing to her at times, but denies they are command type. Continues to be isolative to her room. Per hospital records when pt last d/c from [facility] 05/31/18 after admission for psychosis secondary med noncompliance she had been given invega sustenna prior d/c that she tolerated very well and was beneficial for her symptoms of psychosis and paranoia. Per staff continues to have internal stimuli and paranoid delusions, is isolative to her room, and disorganized. MANAGEMENT PLAN: continue plan. Medications: Invega sustenna 234mg im 10/13/19 Invega sustenna 156mg im 10/21/19 haldol 5mg qhs TIME SPENT: 30 minutes. Vital Signs Vital Signs Date Time Temp Pulse Resp B/P (MAP) Pulse Ox O2 Delivery O2 Flow Rate FiO2 10/27/19 06:23 98.3 78 16 119/65 (83) Room Air Current Medications Current Medications Medications (Trade) Dose Ordered Sig/Tyrone Route PRN Reason Start Time Stop Time Status Last Admin Dose Admin Acetaminophen (Tylenol Tab) 650 mg Q6HP PRN PO HEADACHE or DISCOMFORT 10/06/19 20:45 10/09/19 20:13 Al Hydrox/Mg Hydrox/Simethicone (Mylanta) 30 ml Q4HP PRN PO HEARTBURN/INDIGESTION 10/06/19 20:45 Diphenhydramine HCl (Benadryl Cream) TO ERYTHEMATOUS RASH... QID PRN TOP ITCHING 10/07/19 08:15 10/12/19 08:14 DC Haloperidol (Haldol) 5 mg QHS PO 10/21/19 21:00 10/25/19 22:07 Home Med (Med Rec Complete!) ASDIRECTED XX 10/06/19 20:00 10/06/19 19:54 DC Hyoscyamine/Lido/ Alumin/Mag/Simethi (Gi Cocktail) 50 ml Q6HP PRN PO GI UPSET 10/07/19 08:30 Magnesium Hydroxide (Milk Of Magnesia) 30 ml DAILYPRN PRN PO CONSTIPATION 10/06/19 20:45 Non-Formulary Medication ( See Comment Field Below ) SEE COMMENTS SECTION 1T@10 ID 10/17/19 10:00 10/15/19 09:28 DC Non-Formulary Medication ( See Comment Field Below ) SEE LABEL COMMENTS DAILY XX 10/15/19 09:00 Olanzapine (ZyPREXA ZYDIS) 5 mg Q4HP PRN PO AGITATION 10/06/19 20:45 Omeprazole (PriLOSEC) 20 mg DAILY PO 10/07/19 09:00 10/26/19 09:33 Paliperidone (Invega) 3 mg BID PO 10/06/19 21:00 10/11/19 16:55 DC 10/11/19 08:57 Paliperidone (Invega) 6 mg QHS PO 10/11/19 21:00 10/15/19 09:22 DC 10/14/19 21:08 Triamcinolone Acetonide (Kenalog 0.1% Cream) THIN LAYER TO ERYTHEMAT... BID TOP 10/07/19 09:00 10/11/19 21:01 DC 10/11/19 20:46 Triamcinolone Acetonide (Kenalog 0.1% Ointment) THIN LAYER TO ERYTHEMAT... BID TOP 10/07/19 09:00 10/11/19 21:01 DC 10/11/19 20:46 Allergies Coded Allergies: NSAIDS (Non-Steroidal Anti-Inflamma (Verified Allergy, Unknown, 10/06/19) Penicillins (Verified Allergy, Unknown, 10/06/19) naproxen (Verified Allergy, Unknown, 10/06/19) procaine (Verified Allergy, Unknown, 10/06/19) shellfish derived (Verified Allergy, Unknown, 10/06/19) NUVIA GATES DO Oct 27, 2019 9:01 am
[2019-10-27] MEDS: OMEPRAZOLE 20 MG CAP PO SCH (09:48)
[2019-10-27 17:05] VITALS: BP 92/59
[2019-10-27] MEDS: haloperidoL 5 MG TAB PO SCH (21:31)
[2019-10-27] MEDS: BENZTROPINE 0.5 MG TAB PO SCH (21:31)
[2019-10-28 06:35] VITALS: BP 114/68
[2019-10-28] MEDS: OMEPRAZOLE 20 MG CAP PO SCH (08:39)
[2019-10-28] MEDS: **PENDING PPD ENTRY XX SCH (09:00)
--- NOTE | 2019-10-28 09:28 | MHIPNPDOC ---
[facility] Progress Note Progress Note DATE OF SERVICE: 10/28/19 HISTORY: Patient is a 38 -year-old , female, with a history of paranoid schizophrenia and multiple [facility] admissions in the past who was brought to ED by PD under 9.41 after her aunt called them stating pt was aggressive and has been decompensating recently. Per ED, pt has become increasingly paranoid and delusional at home, denied SI/HI, and stated in the ED that she became angry at her aunt for closing the window in the home. Pt also per ED was very adamant that she was being poisoned by numerous "gases" and "fumes" in the home and therefore opened the windows when her aunt closed them aggressively. In ED pt was insitent that she is being "zapped"by "frequencies in the [place]" that they are "scanning my head." Per ED her speech was rambling and disorganized at times, attention was poor as easily distracted. Pt was unable to answer when she last took her medications or saw her outpatient psychiatrist. Pt denies hallucinations in the ED. She appeared paranoid per ED. Pt seen and states that "the ventilation system was causing exhaust so I went to my room to open the windows... she's always looking for a reaction with weird facial expressions... my dogs" not making much sense and disorganized when see. States she was she wasn't taking invega at home but Tylenol #3 for arthritis. Pt states she feels the same today even with dose of invega 3mg and appears very paranoid of her aunt and "fumes" in her home. She denies SI/HI. Plan to administer invega sustenna for med compliance prior d/c. Pt is a very poor historian. Pt is a very poor historian secondary to psychosis so therefore history gathered from previous hospital records. VITAL SIGNS: See below. NEW TEST RESULTS: See below. CURRENT MEDICATIONS: See below. MENTAL STATUS EXAMINATION: General Appearance: well groomed, appears stated age, hospital scrubs/clothing Build: thin Demeanor: preoccupied, cooperative, isolative to room mostly Eye Contact: fair Activity: resting in bed, isolative to room mostly Behavior: cooperative Speech: clear, low volume, spontaneous, rambling Mood: euthymic Mood "ok" Affect: euthymic Thought Process: concrete, tangential, associative, derailment, paranoid Thought Content (Delusions): grandiose, bizarre, denies SI, HI, AH radio playing periodically on unit with emotions and doing things, relating at times to what she'd write on paper (ideas of reference?), denies VH, paranoia, delusions Thought Content (Other): preoccupied, guarded, appears paranoid Thought Content (Aggressive): none reported Perception (Hallucinations): AH radio playing periodically on unit with emotions and doing things, relating at times to what she'd write on paper (ideas of reference?) Perception (Other): none reported Cognition (Impairment of): attention/concentration, ability to abstract Cognition(Intelligence Est.): average Oriented: Awake, Alert, Oriented times three Insight: poor Judgment: Poor Psychosis: Associations, Abstract Thinking, Psychotic Perceptions DIAGNOSES: Paranoid Schizophrenia ASSESSMENT:Pt seen for administrative hearing regarding transfer to [facility] and transfer approved on Sunday. During hearing pt disorganized often talking of treatment in [place], living in [place] with no real recollection that she's been living in [facility] for years and having had treatment in the area and at this hospital previously. Answered may questions in a very concrete fashion that at times didn't correlate with the question asked. Continued to refuse haldol during hearing. Did not appear to understand that she has not place to go as aunt isn't allowing her back into her home thinking she could just move into her own apt immediately. Still endorsing paranoia regard her aunt talking as if it's all her aunt that is the problem and not her. Pt seen in her room today reading legal admission paperwork in [place] and states she speaks [place]. She is showing now. States she took haldol last night with cogentin last night and state its beneficial and denies side effects from it. States she's been going to a few groups but doesn't really understand why she's there as "it's just a bunch of people sitting together with no real purpose" along with concrete thoughts about groups about feelings and energies. Continues to endorse AH of the radio playing periodically during the day talking in different emotions, confusing to her at times, but denies they are command type. Continues to be isolative to her room mostly. Per hospital records when pt last d/c from [facility] 05/31/18 after admission for psychosis secondary med noncompliance she had been given invega sustenna prior d/c that she tolerated very well and was beneficial for her symptoms of psychosis and paranoia. Per staff continues to have internal stimuli and paranoid delusions, is isolative to her room, and disorganized. MANAGEMENT PLAN: continue plan. D/c to [facility] tomorrow Medications: Invega sustenna 234mg im 10/13/19 Invega sustenna 156mg im 10/21/19 haldol 5mg qhs cogentin 0.5mg qhs TIME SPENT: 30 minutes. Vital Signs Vital Signs Date Time Temp Pulse Resp B/P (MAP) Pulse Ox O2 Delivery O2 Flow Rate FiO2 10/28/19 06:35 99.1 85 14 114/68 (83) 10/27/19 06:23 Room Air Current Medications Current Medications Medications (Trade) Dose Ordered Sig/Tyrone Route PRN Reason Start Time Stop Time Status Last Admin Dose Admin Acetaminophen (Tylenol Tab) 650 mg Q6HP PRN PO HEADACHE or DISCOMFORT 10/06/19 20:45 10/09/19 20:13 Al Hydrox/Mg Hydrox/Simethicone (Mylanta) 30 ml Q4HP PRN PO HEARTBURN/INDIGESTION 10/06/19 20:45 Benztropine Mesylate (Cogentin) 0.5 mg QHS PO 10/27/19 21:00 10/27/19 21:31 Diphenhydramine HCl (Benadryl Cream) TO ERYTHEMATOUS RASH... QID PRN TOP ITCHING 10/07/19 08:15 10/12/19 08:14 DC Haloperidol (Haldol) 5 mg QHS PO 10/21/19 21:00 10/27/19 21:31 Home Med (Med Rec Complete!) ASDIRECTED XX 10/06/19 20:00 10/06/19 19:54 DC Hyoscyamine/Lido/ Alumin/Mag/Simethi (Gi Cocktail) 50 ml Q6HP PRN PO GI UPSET 10/07/19 08:30 Magnesium Hydroxide (Milk Of Magnesia) 30 ml DAILYPRN PRN PO CONSTIPATION 10/06/19 20:45 Non-Formulary Medication ( See Comment Field Below ) SEE COMMENTS SECTION 1T@10 ID 10/17/19 10:00 10/15/19 09:28 DC Non-Formulary Medication ( See Comment Field Below ) SEE LABEL COMMENTS DAILY XX 10/15/19 09:00 Olanzapine (ZyPREXA ZYDIS) 5 mg Q4HP PRN PO AGITATION 10/06/19 20:45 Omeprazole (PriLOSEC) 20 mg DAILY PO 10/07/19 09:00 10/28/19 08:39 Paliperidone (Invega) 3 mg BID PO 10/06/19 21:00 10/11/19 16:55 DC 10/11/19 08:57 Paliperidone (Invega) 6 mg QHS PO 10/11/19 21:00 10/15/19 09:22 DC 10/14/19 21:08 Triamcinolone Acetonide (Kenalog 0.1% Cream) THIN LAYER TO ERYTHEMAT... BID TOP 10/07/19 09:00 10/11/19 21:01 DC 10/11/19 20:46 Triamcinolone Acetonide (Kenalog 0.1% Ointment) THIN LAYER TO ERYTHEMAT... BID TOP 10/07/19 09:00 10/11/19 21:01 DC 10/11/19 20:46 Allergies Coded Allergies: NSAIDS (Non-Steroidal Anti-Inflamma (Verified Allergy, Unknown, 10/06/19) Penicillins (Verified Allergy, Unknown, 10/06/19) naproxen (Verified Allergy, Unknown, 10/06/19) procaine (Verified Allergy, Unknown, 10/06/19) shellfish derived (Verified Allergy, Unknown, 10/06/19) NUVIA GATES DO Oct 28, 2019 9:28 am
[2019-10-28 16:20] VITALS: BP 112/70
[2019-10-28] MEDS: BENZTROPINE 0.5 MG TAB PO SCH (20:43)
[2019-10-28] MEDS: haloperidoL 5 MG TAB PO SCH (20:43)
[2019-10-29 06:52] VITALS: BP 100/54
[2019-10-29] MEDS: **PENDING PPD ENTRY XX SCH (09:00)
--- NOTE | 2019-10-29 09:01 | MHDSPDOC ---
[facility] Discharge Summary Discharge Summary DATE OF ADMISSION: Oct 06, 2019 at 8:45 pm DATE OF DISCHARGE: Oct 29, 2019 DISCHARGE DIAGNOSES: Paranoid Schizophrenia REASON FOR ADMISSION: Patient is a 38 -year-old , female, with a history of paranoid schizophrenia and multiple [facility] admissions in the past who was brought to ED by PD under 9.41 after her aunt called them stating pt was aggressive and has been decompensating recently. Per ED, pt has become increasingly paranoid and delusional at home, denied SI/HI, and stated in the ED that she became angry at her aunt for closing the window in the home. Pt also per ED was very adamant that she was being poisoned by numerous "gases" and "fumes" in the home and therefore opened the windows when her aunt closed them aggressively. In ED pt was insitent that she is being "zapped"by "frequencies in the [place]" that they are "scanning my head." Per ED her speech was rambling and disorganized at times, attention was poor as easily distracted. Pt was unable to answer when she last took her medications or saw her outpatient psychiatrist. Pt denies sia lucinations in the ED. She appeared paranoid per ED. Pt seen and states that "the ventilation system was causing exhaust so I went to my room to open the windows... she's always looking for a reaction with weird facial expressions... my dogs" not making much sense and disorganized when see. States she was she wasn't taking invega at home but Tylenol #3 for arthritis. Pt states she feels the same today even with dose of invega 3mg and appears very paranoid of her aunt and "fumes" in her home. She denies SI/HI. Plan to administer invega sustenna for med compliance prior d/c. Pt is a very poor historian. Pt is a very poor historian secondary to psychosis so therefore history gathered from previous hospital records. CONSULTANTS INVOLVED: none TREATMENT AND PROGRESS ON THE UNIT : Pt was admitted to [facility], seen for psychiatric assessment and started on invega increased to 6mg bid for psychosis that she tolerated well so she was given invega sustenna 234mg IM followed by 156mg IM that she tolerated well with medication compliance. Her symptoms of psychosis and response to internal stimuli only improved mildly with invega sustenna so she was started on haldol 5mg nightly that she was not fully compliant on until just prior to d/c with improvement in some of her internal stimuli and psychosis. Pt tolerated her medications well. She did not attended groups during her stay due to internal stimuli and difficulty focusing on the groups, understanding them. Her symptoms improved mildly with treatment. She is not at her baseline status. 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 DISCHARGE ASSESSMENT: Pt seen in her room today states she's ready to go to [facility] for treatment. She continues to respond to internal stimuli (hearing the radio playing on the unit talking about various things that changes daily). States she tolerating her medication well. Took her haldol last night and feels "ok". She has not been going to groups during her stay and is very isolative to her room. Per hospital records when pt last d/c from [facility] 05/31/18 after admission for psychosis secondary med noncompliance she had been given invega sustenna prior d/c that she tolerated very well and was beneficial for her symptoms of p sychosis and paranoia. Per staff continues to have internal stimuli and paranoid delusions, is isolative to her room, and disorganized. MENTAL STATUS EXAMINATION ON DISCHARGE: General Appearance: well groomed, appears stated age, hospital scrubs/clothing Build: thin Demeanor: preoccupied, cooperative, isolative to room mostly Eye Contact: fair Activity: resting in bed, isolative to room mostly Behavior: cooperative Speech: clear, low volume, spontaneous, rambling Mood: euthymic Mood "ok" Affect: euthymic Thought Process: concrete, tangential, associative, derailment, paranoid Thought Content (Delusions): grandiose, bizarre, denies SI, HI, AH radio playing periodically on unit with emotions and doing things, relating at times to what she'd write on paper (ideas of reference?), denies VH, paranoia, delusions Thought Content (Other): preoccupied, guarded, appears paranoid Thought Content (Aggressive): none reported Perception (Hallucinations): AH radio playing periodically on unit with emotions and doing things, relating at times to what she'd write on paper (ideas of reference?) Perception (Other): none reported Cognition (Impairment of): attention/concentration, ability to abstract Cognition(Intelligence Est.): average Oriented: Awake, Alert, Oriented times three Insight: poor Judgment: Poor Psychosis: Associations, Abstract Thinking, Psychotic Perceptions MEDICATIONS ON DISCHARGE: Invega sustenna 234mg im 10/13/19 haldol 5mg qhs cogentin 0.5mg qhs PLAN/FOLLOWUP ARRANGEMENTS: 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 The amount of time spent in the coordination of care for this patient was approximately 30 minutes. Vital Signs/I&Os Vital Signs Date Time Temp Pulse Resp B/P (MAP) Pulse Ox O2 Delivery O2 Flow Rate FiO2 10/29/19 06:52 97.5 63 14 100/54 (69) 10/27/19 06:23 Room Air Medications Scheduled Cholecalciferol (Vitamin D3) (Vitamin D3) 2,000 Unit Tablet, 2,000 MG PO DAILY, (Reported) Paliperidone (Invega) 3 Mg Tab.er.24, 9 MG PO DAILY, (Reported) FILLED 09/04/19 - NEVER PICKED UP Allergies Coded Allergies: NSAIDS (Non-Steroidal Anti-Inflamma (Verified Allergy, Unknown, 10/06/19) Penicillins (Verified Allergy, Unknown, 10/06/19) naproxen (Verified Allergy, Unknown, 10/06/19) procaine (Verified Allergy, Unknown, 10/06/19) shellfish derived (Verified Allergy, Unknown, 10/06/19) NUVIA GATES DO Oct 29, 2019 9:01 am
[2019-10-29] MEDS: OMEPRAZOLE 20 MG CAP PO SCH (09:04)
== END 2019-10-29 13:45 | DRG 750 ==
LOC: M ED 18:17 → M ED INP 20:45 → M PSY 10-07 00:17
PROVIDERS: ADMIT Psychiatry & Neurology Psychiatry; ATTEND Psychiatry & Neurology Psychiatry
DX: F20.0 Paranoid schizophrenia (principal); F32.9 Major depressive disorder, single episode, unspecified; F43.10 Post-traumatic stress disorder, unspecified; G43.909 Migraine, unspecified, not intractable, without status migrainosus; G40.909 Epilepsy, unspecified, not intractable, without status epilepticus; R10.13 Epigastric pain; R33.9 Retention of urine, unspecified; N39.0 Urinary tract infection, site not specified; R21 Rash and other nonspecific skin eruption; Z79.899 Other long term (current) drug therapy; Z88.0 Allergy status to penicillin; Z88.8 Allergy status to other drugs, medicaments and biological substances; Z91.013 Allergy to seafood; Z87.891 Personal history of nicotine dependence

== ENCOUNTER 2023-01-17 04:47 | Inpatient (IN) | payer MEDICAID, OTHER ==
[~2023-01-17] VITALS: Ht 167.6 cm; Wt 61.0 kg
[~2023-01-17 04:47] MED LIST changes: -BENZ-52 PO; +BENZ1TAB5 PO; +NICO-13 PO; +NICO-267 PO; -NICO2GUM52 PO; -NICO4GUM31 PO; +PANT40TA29 PO; -PANT40TA3 PO; +QUET100T2 PO; -QUET1TAB8 PO; -TOPI25CA3 PO; +TOPI25CA5 PO; -TRAZ10TA PO; +TRAZ1TAB12 PO; +VITA200015 PO
[2023-01-17 05:39] LABS: HEMATOCRIT 43.3 % (36.0-47.0); HEMOGLOBIN 14.2 g/dl (12.0-15.5); MEAN CORPUSCULAR HEMOGLOBIN 31.1 pg (27.0-33.0); MEAN CORPUSCULAR HGB CONC 32.8 g/dl (32.0-36.5); PLATELET COUNT, AUTOMATED 567 10^3/uL (150-450); RED BLOOD COUNT 4.56 10^6/uL (4.00-5.40); WHITE BLOOD COUNT 13.1 10^3/uL (4.0-10.0)
[2023-01-17 06:01] LABS: AMPHETAMINES LEVEL URINE NEGATIVE (NEGATIVE); BARBITURATES URINE NEGATIVE (NEGATIVE); BENZODIAZEPINES URINE NEGATIVE (NEGATIVE); CANNABINOIDS URINE NEGATIVE (NEGATIVE); COCAINE METABOLITE URINE NEGATIVE (NEGATIVE); METHADONE URINE NEGATIVE (NEGATIVE); PHENCYCLIDINE URINE NEGATIVE (NEGATIVE)
[2023-01-17 06:03] LABS: ETHYL ALCOHOL (ETHANOL) < 0.003 % (0.000-0.010); OPIATES URINE NEGATIVE (NEGATIVE)
[2023-01-17 06:05] LABS: ACETAMINOPHEN LEVEL < 2.0 UG/ML (10.0-20.0); SALICYLATE LEVEL < 3.0 MG/DL (<30)
[2023-01-17 06:09] LABS: ALBUMIN 4.2 G/DL (3.2-5.2); ALKALINE PHOSPHATASE 56 U/L (46-116); ALT/SGPT 13 U/L (7.0-40); AST/SGOT 14 U/L (<34); BILIRUBIN,DIRECT < 0.1 MG/DL (<0.4); BILIRUBIN,TOTAL 0.2 MG/DL (0.3-1.2); BLOOD UREA NITROGEN 14 MG/DL (9-23); CALCIUM LEVEL 8.9 MG/DL (8.5-10.1); CARBON DIOXIDE LEVEL 23 MMOL/L (20-31); CHLORIDE LEVEL 103 MMOL/L (98-107); CREATININE FOR GFR 0.74 MG/DL (0.55-1.30); GLOMERULAR FILTRATION RATE > 60.0 (>58); GLUCOSE, FASTING 180 MG/DL (60-100); POTASSIUM SERUM 4.1 MMOL/L (3.5-5.1); SODIUM LEVEL 136 MMOL/L (136-145); THYROID STIMULATING HORMONE 0.803 uIU/ML (0.55-4.78); TOTAL PROTEIN 7.9 G/DL (5.7-8.2)
[2023-01-17 06:13] LABS: HCG, SERUM QUALITATIVE NEGATIVE (NEGATIVE)
[2023-01-17] MEDS ORDERED: HOME MED LIST COMPLETE! XX SCH (08:00)
[2023-01-18] MEDS ORDERED: MOM 30ML SUSPENSION UDC PO PRN (13:05)
[2023-01-18] MEDS ORDERED: traZODone 50 MG TAB PO PRN (13:05)
[2023-01-18] MEDS ORDERED: MAALOX 30 ML SUSP *UDC PO PRN (13:05)
[2023-01-18] MEDS ORDERED: LORazepam 1 MG TAB PO PRN (13:05)
[2023-01-19 06:31] VITALS: BP 112/65
[2023-01-19] MEDS: DIVALPROEX 250MG *ER* TAB PO SCH (09:00)
[2023-01-19] MEDS: NICOTINE 21MG/24HR 1 EA TRANSDERMAL TD SCH (09:00)
[2023-01-19 17:48] VITALS: BP 140/84
[2023-01-20] MEDS: NICOTINE 21MG/24HR 1 EA TRANSDERMAL TD SCH (09:00)
[2023-01-20] MEDS: DIVALPROEX 250MG *ER* TAB PO SCH (09:00)
[2023-01-20 18:18] VITALS: BP 119/75
[2023-01-21] MEDS: NICOTINE 21MG/24HR 1 EA TRANSDERMAL TD SCH (09:00)
[2023-01-21] MEDS: DIVALPROEX 250MG *ER* TAB PO SCH (09:00)
[2023-01-21 16:04] VITALS: BP 112/67
[2023-01-22 06:19] VITALS: BP 123/64
[2023-01-22] MEDS: NICOTINE 21MG/24HR 1 EA TRANSDERMAL TD SCH (09:00)
[2023-01-22] MEDS: DIVALPROEX 250MG *ER* TAB PO SCH (09:00)
[2023-01-23 06:40] VITALS: BP 121/69
[2023-01-23] MEDS: DIVALPROEX 250MG *ER* TAB PO SCH (08:57)
[2023-01-23] MEDS: NICOTINE 21MG/24HR 1 EA TRANSDERMAL TD SCH (08:58)
[2023-01-24 06:27] VITALS: BP 129/70
[2023-01-24] MEDS: NICOTINE 21MG/24HR 1 EA TRANSDERMAL TD SCH (08:45)
[2023-01-24] MEDS: DIVALPROEX 250MG *ER* TAB PO SCH (08:45)
[2023-01-25 06:25] VITALS: BP 123/58
[2023-01-25] MEDS: NICOTINE 21MG/24HR 1 EA TRANSDERMAL TD SCH (09:00)
[2023-01-25] MEDS: DIVALPROEX 250MG *ER* TAB PO SCH (09:00)
[2023-01-26 06:36] VITALS: BP 117/74
[2023-01-26] MEDS: NICOTINE 21MG/24HR 1 EA TRANSDERMAL TD SCH (09:00)
[2023-01-26] MEDS: DIVALPROEX 250MG *ER* TAB PO SCH (09:00)
[2023-01-26] MEDS ORDERED: TUBERCULIN PPD 5 UNITS/0.1 ML ID ONE (13:00)
[2023-01-27 06:53] VITALS: BP 101/58
[2023-01-27] MEDS: DIVALPROEX 250MG *ER* TAB PO SCH (08:45)
[2023-01-27] MEDS: NICOTINE 21MG/24HR 1 EA TRANSDERMAL TD SCH (08:45)
[2023-01-28 06:42] VITALS: BP 95/58
[2023-01-28] MEDS: DIVALPROEX 250MG *ER* TAB PO SCH (08:01)
[2023-01-28] MEDS: NICOTINE 21MG/24HR 1 EA TRANSDERMAL TD SCH (08:01)
[2023-01-28] MEDS ORDERED: PPD DOCUMENTATION ENTRY MISC XX ONE (13:00)
[2023-01-29 06:25] VITALS: BP 113/60
[2023-01-29] MEDS: DIVALPROEX 250MG *ER* TAB PO SCH ×2 (09:00→15:03)
[2023-01-29] MEDS: NICOTINE 21MG/24HR 1 EA TRANSDERMAL TD SCH (10:06)
[2023-01-30 06:18] VITALS: BP 133/64
[2023-01-30] MEDS: NICOTINE 21MG/24HR 1 EA TRANSDERMAL TD SCH (09:00)
[2023-01-30] MEDS: DIVALPROEX 250MG *ER* TAB PO SCH (10:54)
[2023-01-30 15:14] VITALS: BP 131/70
[2023-01-31] MEDS: NICOTINE 21MG/24HR 1 EA TRANSDERMAL TD SCH (09:00)
[2023-01-31] MEDS: DIVALPROEX 250MG *ER* TAB PO SCH (09:49)
[2023-01-31 17:52] VITALS: BP 126/69
[2023-02-01] MEDS: NICOTINE 21MG/24HR 1 EA TRANSDERMAL TD SCH (09:00)
[2023-02-01] MEDS: DIVALPROEX 500MG *ER* TAB PO SCH (09:00)
[2023-02-01 18:17] VITALS: BP 113/62
[2023-02-02] MEDS: DIVALPROEX 500MG *ER* TAB PO SCH (08:46)
[2023-02-02] MEDS: NICOTINE 21MG/24HR 1 EA TRANSDERMAL TD SCH (08:50)
[2023-02-02 17:44] VITALS: BP 114/62
[2023-02-03 05:59] VITALS: BP 110/69
[2023-02-03] MEDS: NICOTINE 21MG/24HR 1 EA TRANSDERMAL TD SCH (09:00)
[2023-02-03] MEDS: DIVALPROEX 500MG *ER* TAB PO SCH (09:48)
[2023-02-03 18:55] VITALS: BP 143/91
[2023-02-04 06:07] VITALS: BP 101/58
[2023-02-04] MEDS: NICOTINE 21MG/24HR 1 EA TRANSDERMAL TD SCH (09:00)
[2023-02-04] MEDS: DIVALPROEX 500MG *ER* TAB PO SCH (09:21)
[2023-02-04 18:19] VITALS: BP 114/63
[2023-02-05 06:15] VITALS: BP 107/59
[2023-02-05] MEDS: NICOTINE 21MG/24HR 1 EA TRANSDERMAL TD SCH (09:00)
[2023-02-05] MEDS: DIVALPROEX 500MG *ER* TAB PO SCH ×2 (10:09→10:17)
[2023-02-05 18:54] VITALS: BP 129/68
[2023-02-06 06:39] VITALS: BP 110/65
[2023-02-06] MEDS: DIVALPROEX 500MG *ER* TAB PO SCH (09:00)
[2023-02-06] MEDS: DIVALPROEX SPRINKLE 125 MG CAP PO SCH ×2 (09:00→20:13)
[2023-02-06] MEDS: NICOTINE 21MG/24HR 1 EA TRANSDERMAL TD SCH (09:00)
[2023-02-06] MEDS ORDERED: PILL CUTTER 1 EACH XX PRN (10:20)
[2023-02-07 06:37] VITALS: BP 120/62
[2023-02-07] MEDS: NICOTINE 21MG/24HR 1 EA TRANSDERMAL TD SCH (08:49)
[2023-02-07] MEDS: DIVALPROEX SPRINKLE 125 MG CAP PO SCH (08:52)
[2023-02-07] MEDS ORDERED: BENZTROPINE 2 MG TAB PO PRN (10:20)
[2023-02-08 06:52] VITALS: BP 107/61
[2023-02-08] MEDS: NICOTINE 21MG/24HR 1 EA TRANSDERMAL TD SCH (09:00)
[2023-02-08] MEDS ORDERED: TRAZ-252 PO (09:35)
[2023-02-08] MEDS ORDERED: BENZ2TAB5 PO (09:35)
[2023-02-08] MEDS ORDERED: HALO10TA20 PO (09:35)
== END 2023-02-08 11:58 | disposition home or self-care (01) | DRG 750 ==
LOC: M ED 04:47 → M ED INP 01-18 13:02 → M PSY 01-18 14:54
PROVIDERS: ADMIT Student in an Organized Health Care Education/Training Program; ATTEND Student in an Organized Health Care Education/Training Program
DX: F20.9 Schizophrenia, unspecified (principal); G40.909 Epilepsy, unspecified, not intractable, without status epilepticus; Z91.51 Personal history of suicidal behavior; Z88.0 Allergy status to penicillin; Z88.6 Allergy status to analgesic agent; Z88.8 Allergy status to other drugs, medicaments and biological substances; Z91.013 Allergy to seafood